=== PATIENT | male | born 1940 | race Caucasian/White ===

== ENCOUNTER → 2017-08-11 | Outpatient (CLI) | payer BC ==
[~2017-08-11] MED LIST: ASPI325 PO; Ultram50 MG PO
[2017-08-11 18:12] LABS: BASOPHILS ABSOLUTE AUTO 0.08 K/mm3 (0.00-0.23); BASOPHILS PERCENT AUTO 1 % (0-2); EOSINOPHILS ABSOLUTE AUTO 0.13 K/mm3 (0.00-0.68); EOSINOPHILS PERCENT AUTO 2 % (0-6); Hematocrit 44.4 % (37.0-53.0); Hemoglobin 14.9 g/dL (13.5-17.5); IMMATURE GRAN ABSOLUTE AUTO 0.03 K/mm3 (0.00-0.10); IMMATURE GRAN PERCENT AUTO 0 % (0-1); LYMPHOCYTES ABSOLUTE AUTO 1.17 K/mm3 (0.84-5.20); LYMPHOCYTES PERCENT AUTO 16 % (21-46); MONOCYTES ABSOLUTE AUTO 0.96 K/mm3 (0.16-1.47); MONOCYTES PERCENT AUTO 13 % (4-13); Mean Corpuscular HGB Conc 33.6 g/dL (31.5-36.5); Mean Corpuscular Volume 96 fL (80-100); Mean Platelet Volume 11.1 fL (9.1-12.4); NEUTROPHILS ABSOLUTE AUTO 5.09 K/mm3 (1.96-9.15); NEUTROPHILS PERCENT AUTO 68 % (41-73); Platelet Count 235 K/mm3 (150-400); RDW Coefficient Variation 13.6 % (11.7-14.2); RDW Standard Deviation 48.2 fL (35.1-46.3); Red Blood Cell Count 4.65 M/mm3 (4.30-5.90); White Blood Cell Count 7.46 K/mm3 (4.00-11.30)
[2017-08-11 19:25] LABS: Alanine Aminotransfer (ALT/SGP 28 U/L (12-78); Albumin, Blood 4.1 g/dL (3.4-5.0); Albumin/Globulin Ratio 1.1 (0.8-1.8); Alk Phos 72 U/L (50-136); Anion Gap 11 mmol/L (6-16); Aspartate Aminotrans (AST/SGOT 34 U/L (12-37); Bilirubin, Total 0.7 mg/dL (0.1-1.0); Blood Urea Nitrogen 19 mg/dL (8-24); Bun/Creatinine Ratio 21.4 (12.0-20.0); CO2, Blood 28 mmol/L (21-32); Calcium, Blood 9.8 mg/dL (8.5-10.1); Chloride, Blood 96 mmol/L (98-108); Creatinine, Blood 0.89 mg/dL (0.60-1.20); Free Thyroxine 0.93 ng/dL (0.70-1.60); Globulin, Blood 3.9 g/dL (2.2-4.0); Glomerular Filtration Rate >60 (60-); Glucose, Blood 104 mg/dL (70-99); PSA, %Free 35.1 %; PSA, Free 0.203 ng/mL; Potassium, Blood 3.6 mmol/L (3.5-5.5); Prostate Specific Antigen 0.578 ng/mL (0.000-4.000); Sodium, Blood 135 mmol/L (136-145)
== END ==
LOC: LAB SHORT 15:20
PROVIDERS: Nurse Practitioner Adult Health
DX: I10 Essential (primary) hypertension (principal); J44.9 Chronic obstructive pulmonary disease, unspecified; R53.83 Other fatigue; R63.4 Abnormal weight loss; Z86.39 Personal history of other endocrine, nutritional and metabolic disease; Z86.79 Personal history of other diseases of the circulatory system
CPT/HCPCS: 80053; 84153; 84154; 84439; 84443; 85025

== ENCOUNTER 2019-06-22 09:12 | Inpatient (IN) | payer BC ==
[~2019-06-22] VITALS: Ht 177.8 cm; Wt 72.5 kg
[2019-06-22 10:19] LABS: BASOPHILS ABSOLUTE AUTO 0.05 K/mm3 (0.00-0.23); BASOPHILS PERCENT AUTO 0 % (0-2); EOSINOPHILS PERCENT AUTO 0 % (0-6); Hematocrit 35.7 % (37.0-53.0); Hemoglobin 11.8 g/dL (13.5-17.5); IMMATURE GRAN ABSOLUTE AUTO 0.29 K/mm3 (0.00-0.10); IMMATURE GRAN PERCENT AUTO 2 % (0-1); LYMPHOCYTES ABSOLUTE AUTO 0.55 K/mm3 (0.84-5.20); LYMPHOCYTES PERCENT AUTO 3 % (21-46); MONOCYTES PERCENT AUTO 14 % (4-13); Mean Corpuscular HGB 33.8 pg (26.0-34.0); Mean Corpuscular HGB Conc 33.1 g/dL (31.5-36.5); Mean Corpuscular Volume 102 fL (80-100); Mean Platelet Volume 10.5 fL (9.1-12.4); NEUTROPHILS ABSOLUTE AUTO 15.66 K/mm3 (1.96-9.15); NEUTROPHILS PERCENT AUTO 82 % (41-73); Platelet Count 294 K/mm3 (150-400); RDW Coefficient Variation 14.3 % (11.7-14.2); RDW Standard Deviation 53.5 fL (35.1-46.3); Red Blood Cell Count 3.49 M/mm3 (4.30-5.90); White Blood Cell Count 19.15 K/mm3 (4.00-11.30)
[2019-06-22 10:26] LABS: Alanine Aminotransfer (ALT/SGP 21 U/L (12-78); Albumin, Blood 2.5 g/dL (3.4-5.0); Albumin/Globulin Ratio 0.5 (0.8-1.8); Alk Phos 69 U/L (50-136); Anion Gap 11 mmol/L (6-16); Aspartate Aminotrans (AST/SGOT 30 U/L (12-37); Bilirubin, Total 0.7 mg/dL (0.1-1.0); Blood Urea Nitrogen 25 mg/dL (8-24); Bun/Creatinine Ratio 39.4 (12.0-20.0); CO2, Blood 26 mmol/L (21-32); Calcium, Blood 8.3 mg/dL (8.5-10.1); Chloride, Blood 98 mmol/L (98-108); Creatinine, Blood 0.64 mg/dL (0.60-1.20); Globulin, Blood 4.9 g/dL (2.2-4.0); Glomerular Filtration Rate >60 (60-); Glucose, Blood 126 mg/dL (70-99); Potassium, Blood 3.6 mmol/L (3.5-5.5); Sodium, Blood 135 mmol/L (136-145); Total Protein, Blood 7.4 g/dL (6.4-8.2)
--- NOTE | 2019-06-22 15:24 | NUR ---
Echocardiogram completed.
[2019-06-22] MEDS ORDERED: ACET325 PO (15:27)
[2019-06-22 19:31] LABS: Source, Urine Clean Catch
[2019-06-22 19:41] LABS: Appearance, Urine Clear (Clear); Bilirubin, Urine Neg (Neg); Blood, Urine 2+ (Neg); Color, Urine Yellow (P-Yellow); Glucose Qualitative, Urine 1+ (Neg); Ketones, Urine Neg (Neg); Leukocyte Esterase, Urine 1+ (Neg); Nitrite, Urine Neg (Neg); Protein, Urine 3+ (Neg); Urobilinogen, Urine NORM (Normal)
[2019-06-22 19:47] LABS: Amorphous Light (0-Heavy); Bacteria Mod /hpf; Mucus Light (0-Heavy); Squamous Epithelial Cells Few /hpf (Few); White Blood Cells, Urine 0-2 /hpf (0-5)
--- NOTE | 2019-06-23 04:23 | NUR ---
SHIFT SUMMARY PT A/OX4 W/VSS. PAIN MANAGED WITH 10MG NORCO Q4. IVF INFUSING PER ORDERS, NPO AT 0000 TODAY. USES URINAL IND. CIWA SCORE UNDER 2. TELE IN PLACE; HR/RHYTHM IN WANDERING ATRIAL PACEMAKER AT 98 BPM W/ PVC- PER HEAD ORTHOPEDIC TEAM PHYSICIAN. PT PLEASANT AND COOPERATIVE. APPEARS TO HAVE SLEPT WELL T/O SHIFT. PLAN FOR POSSIBLE SURGERY TODAY. WILL CONT TO MONITOR AND GIVE REPORT TO ONCOMING RN.
[2019-06-23 04:28] LABS: BASOPHILS ABSOLUTE AUTO 0.05 K/mm3 (0.00-0.23); BASOPHILS PERCENT AUTO 0 % (0-2); EOSINOPHILS ABSOLUTE AUTO 0.01 K/mm3 (0.00-0.68); EOSINOPHILS PERCENT AUTO 0 % (0-6); Hematocrit 31.7 % (37.0-53.0); Hemoglobin 10.5 g/dL (13.5-17.5); IMMATURE GRAN ABSOLUTE AUTO 0.23 K/mm3 (0.00-0.10); IMMATURE GRAN PERCENT AUTO 2 % (0-1); LYMPHOCYTES ABSOLUTE AUTO 0.73 K/mm3 (0.84-5.20); LYMPHOCYTES PERCENT AUTO 5 % (21-46); MONOCYTES PERCENT AUTO 13 % (4-13); Mean Corpuscular HGB 33.9 pg (26.0-34.0); Mean Corpuscular HGB Conc 33.1 g/dL (31.5-36.5); Mean Corpuscular Volume 102 fL (80-100); Mean Platelet Volume 10.2 fL (9.1-12.4); NEUTROPHILS ABSOLUTE AUTO 12.31 K/mm3 (1.96-9.15); NEUTROPHILS PERCENT AUTO 80 % (41-73); Platelet Count 273 K/mm3 (150-400); RDW Coefficient Variation 14.3 % (11.7-14.2); RDW Standard Deviation 53.7 fL (35.1-46.3); White Blood Cell Count 15.33 K/mm3 (4.00-11.30)
[2019-06-23 04:44] LABS: Anion Gap 8 mmol/L (6-16); Blood Urea Nitrogen 29 mg/dL (8-24); Bun/Creatinine Ratio 39.9 (12.0-20.0); CO2, Blood 28 mmol/L (21-32); Calcium, Blood 8.3 mg/dL (8.5-10.1); Chloride, Blood 98 mmol/L (98-108); Creatinine, Blood 0.73 mg/dL (0.60-1.20); Glomerular Filtration Rate >60 (60-); Glucose, Blood 104 mg/dL (70-99); Potassium, Blood 3.2 mmol/L (3.5-5.5); Sodium, Blood 134 mmol/L (136-145)
--- NOTE | 2019-06-23 10:45 | NUR ---
assumed care of pt, recvd report from previous RN Mansi, pt lying in bed, rates pain at 8/10, will medicate per mar
--- NOTE | 2019-06-23 12:00 | NUR ---
Dr. Jaramillo in with pt, signed anesthesia consent
--- NOTE | 2019-06-23 16:10 | NUR ---
pt transferred to daysurgery for procedure
--- NOTE | 2019-06-23 17:48 | NUR ---
shift summary: vss, no acute changes, pt remained NPO prior to surgery, only sips with skip measure medications and analgesia per MD orders. Nursing staff provided pt with bed bath pre op. pt's HR <90 and SBP <140, surgeon/anesthesiologist notified. Pt taken to daysurgery approx 1600
--- NOTE | 2019-06-23 19:15 | NUR ---
WITH PT RECEIVED FROM PACU PER DAY RN AND STARTNG SHIFT REPORT,PT NOTED TO BE AGGITATED SWATTING AT STAFF.02 SATS DECLINED AND PT GRABBING STAFF HANDS WITH ATTEMPS TO PUT O2 ON.UNCOOPERATIVE WITH CARE.DAY RN CALLED REESE AND GAVE PT ATIVAN PER ORDER.REESE ARRIVED AT ROOM AFTER TO CHECK PT AND HE ASSISTED IN GETTING O2 ON.SEE FURTHER VS.
[2019-06-23 20:03] LABS: Hemoglobin 9.9 g/dL (13.5-17.5)
[2019-06-23 20:23] LABS: Alanine Aminotransfer (ALT/SGP 17 U/L (12-78); Albumin, Blood 1.9 g/dL (3.4-5.0); Albumin/Globulin Ratio 0.5 (0.8-1.8); Alk Phos 52 U/L (50-136); Anion Gap 9 mmol/L (6-16); Aspartate Aminotrans (AST/SGOT 24 U/L (12-37); Bilirubin, Total 0.3 mg/dL (0.1-1.0); Blood Urea Nitrogen 24 mg/dL (8-24); Bun/Creatinine Ratio 32.4 (12.0-20.0); CO2, Blood 27 mmol/L (21-32); Chloride, Blood 103 mmol/L (98-108); Creatinine, Blood 0.74 mg/dL (0.60-1.20); Globulin, Blood 4.1 g/dL (2.2-4.0); Glomerular Filtration Rate >60 (60-); Glucose, Blood 91 mg/dL (70-99); Magnesium, Blood 1.5 mg/dL (1.6-2.4); Potassium, Blood 3.3 mmol/L (3.5-5.5); Sodium, Blood 139 mmol/L (136-145)
--- NOTE | 2019-06-23 21:34 | NUR ---
CWA COMPLETED AT LEVEL 8.GAVE PT ATIVAN 2MG IV PER ORDER SET.PT REMAINS ON CONT PULSE OX 97% RR 20 O2 2 L VIA N/C.
--- NOTE | 2019-06-23 23:53 | NUR ---
PT CURRENTLY SLEEPING QUIETLY 2L SATS 97% RR 20.
--- NOTE | 2019-06-24 02:33 | NUR ---
PT MORE ALERT AND IS OCCASIONALLY ASKING FOR ASSISANCE TO REPOSITION APPROPRIATELY.BP NOW UP 172/110 ALTHOUGH NO INCREASE IN AGGITAION OR ANXIETY. CWA IS 8 AND HAS BEEN AT 8 INTERMITTENTLY TONIGHT. HR INCREASED @ 110 AFIB WITH PVCS NOTED PER TELE UNCHANGED. PT WAS NOT ABLE TO TAKE PO METOPROLOL DUE TO ASPIRATION RISK AND STATES HE DOES NOT FEEL HE COULD TAKE IT AT THIS TIME. I CALLED DR LEOS AND ADVISED OF ABOVE. SHE VERB SHE KAPIL BE PUTTING ORDERS IN.
--- NOTE | 2019-06-24 03:42 | NUR ---
BP IMPROVED. PT PULLED HIS TELE PATCHES OFF. WAS COOPERATIVE WITH REPLACEMENTS.CONTINUING ATIVAN PER PRDER SETS AND REESE LUZ AT BEGINNING OF SHIFT.
[2019-06-24 04:27] LABS: Hematocrit 32.9 % (37.0-53.0); Hemoglobin 10.6 g/dL (13.5-17.5); Mean Corpuscular HGB 33.8 pg (26.0-34.0); Mean Corpuscular HGB Conc 32.2 g/dL (31.5-36.5); Mean Platelet Volume 9.9 fL (9.1-12.4); Platelet Count 290 K/mm3 (150-400); RDW Coefficient Variation 14.2 % (11.7-14.2); RDW Standard Deviation 54.6 fL (35.1-46.3); Red Blood Cell Count 3.14 M/mm3 (4.30-5.90); White Blood Cell Count 14.99 K/mm3 (4.00-11.30)
[2019-06-24 04:31] LABS: Mean Corpuscular Volume 105 fL (80-100)
[2019-06-24 04:47] LABS: Anion Gap 13 mmol/L (6-16); Blood Urea Nitrogen 23 mg/dL (8-24); CO2, Blood 21 mmol/L (21-32); Calcium, Blood 8.1 mg/dL (8.5-10.1); Chloride, Blood 104 mmol/L (98-108); Glomerular Filtration Rate >60 (60-); Glucose, Blood 102 mg/dL (70-99); Potassium, Blood 4.1 mmol/L (3.5-5.5); Sodium, Blood 138 mmol/L (136-145)
--- NOTE | 2019-06-24 06:23 | NUR ---
SUMMARY PT CONTINUES REQUIRING ATIVAN TONIGHT.INTERMITTENTLY COOPERATIVE WITH CARE. SEE CWA,MEDS,AND VS
[2019-06-24 09:55] LABS: Base Excess Venous -0.8 mmol/L; Bicarbonate Venous 24.1 mmol/L (24.0-30.0); PCO2 Venous 32.1 mmHg (38-42); PO2 Venous 95.2 mmHg (38-42); pH Blood Venous 7.46 (7.34-7.37)
--- NOTE | 2019-06-24 16:02 | NUR ---
SUMMARY: PT IS POD1 L HIP NAILING. PT CONTINUES TO BE DROWSY, AWAKENS TO TOUCH AND VERBAL STIMULI. TALK IS GARBLED, ORIENTED X2. PT HAS NOT BE AGGITATED OR PULLING THINGS AT REST, ABLE TO SLEEP QUIETLY. DOES GET AGGITATED AND PAINFUL WHEN TURNED AND CHANGED. ETOH SYMPTOMS HAVE BEEN MINIMAL, SCORE OF 1-3. ATIVAN NOT GIVEN THIS SHIFT. VSS AT THIS TIME, NO EVENTS ON TELE. SUCTION SET UP IN ROOM, PT CONTINUES TO HAVE WET, UNPRODUCTIVE COUGH. SWALLOW EVAL ORDERED. FOLLOWING ASPIRATION PRECAUTIONS. PT TOO DROWSY TO WORK WITH PT/OT. NO ACUTE CONCERNS CURRENTLY. WILL CTM AND REPORT TO JACOBY RN.
--- NOTE | 2019-06-25 06:41 | NUR ---
SUMMARY NO DISTRESS TONIGHT.CONFUSED WITH INTERMITTENT PERIODS OF LUCIDITY TO HAVING HAD SURGERY.CONT WITH POOR COUGH EFFORT DUE TO POOR UNDERSTANDING. NEEDING FURTHER WORK WITH PT/OT.
[2019-06-25 08:56] LABS: Hematocrit 32.2 % (37.0-53.0); Hemoglobin 10.2 g/dL (13.5-17.5); Mean Corpuscular HGB 33.6 pg (26.0-34.0); Mean Corpuscular HGB Conc 31.7 g/dL (31.5-36.5); Mean Corpuscular Volume 106 fL (80-100); Mean Platelet Volume 9.7 fL (9.1-12.4); Platelet Count 306 K/mm3 (150-400); RDW Coefficient Variation 14.4 % (11.7-14.2); RDW Standard Deviation 55.8 fL (35.1-46.3); Red Blood Cell Count 3.04 M/mm3 (4.30-5.90)
[2019-06-25 09:12] LABS: Anion Gap 7 mmol/L (6-16); Blood Urea Nitrogen 19 mg/dL (8-24); Bun/Creatinine Ratio 29.1 (12.0-20.0); CO2, Blood 30 mmol/L (21-32); Calcium, Blood 8.8 mg/dL (8.5-10.1); Chloride, Blood 103 mmol/L (98-108); Creatinine, Blood 0.65 mg/dL (0.60-1.20); Glomerular Filtration Rate >60 (60-); Glucose, Blood 147 mg/dL (70-99); Potassium, Blood 3.2 mmol/L (3.5-5.5); Sodium, Blood 140 mmol/L (136-145)
--- NOTE | 2019-06-25 13:58 | NUR ---
06/25/19 1358 Sita Morales VERIFICATIONS: EDIT CHART.
--- NOTE | 2019-06-25 18:09 | NUR ---
SUMMARY: PT IS POD2 L HIP FX REPAIR. NO ACUTE CHANGE TODAY. VSS, A/O, SOMEWHAT DROSWY AT TIMES BUT EASILY AWAKEND AND ANSWERING QUESTIONS. TELE STABLE. PT ABLE TO WORK WITH PT/OT. NO SIGNS OF WITHDRAWAL. WILL CTM AND REPORT TO NOC RN
--- NOTE | 2019-06-26 03:46 | NUR ---
SHIFT SUMMARY PT IS A/O X4 ALTHOUGH HE HAS SEEMED SOMEWHAT SLOW TO RESPOND AND DIFFICULT TO UNDERSTAND. PT NEEDS 2-3 X ASSIST TO TRANSFER FROM BED TO CHAIR. PT IS INCONTINENT AND HAS BEEN CHANGED PRN. PT REPOSITIONED MULT TIMES THROUGHOUT THE SHIFT. PT IS TOLERATING PUREE DIET. LUNGS CONTINUE TO SOUND COARSE AND PT HAS HAD NONPRODUCTIVE COUGH. BIOX IN PLACE THROUGHOUT THE NIGHT. NO ACUTE CHANGES. PT REPORTS PAIN WITH MOVEMENT BUT OTHERWISE HAS BEEN RESTING QUIETLY. ASSISTED WITH ADL'S PRN.
[2019-06-26 04:40] LABS: Anion Gap 8 mmol/L (6-16); Blood Urea Nitrogen 18 mg/dL (8-24); Bun/Creatinine Ratio 25.8 (12.0-20.0); CO2, Blood 29 mmol/L (21-32); Calcium, Blood 8.9 mg/dL (8.5-10.1); Chloride, Blood 105 mmol/L (98-108); Glomerular Filtration Rate >60 (60-); Glucose, Blood 120 mg/dL (70-99); Potassium, Blood 3.8 mmol/L (3.5-5.5); Sodium, Blood 142 mmol/L (136-145)
[2019-06-26 11:53] LABS: Source, Urine Catheter
[2019-06-26 11:57] LABS: Bilirubin, Urine Neg (Neg); Blood, Urine 5+ (Neg); Glucose Qualitative, Urine Neg (Neg); Ketones, Urine Neg (Neg); Leukocyte Esterase, Urine 3+ (Neg); Nitrite, Urine Neg (Neg); Protein, Urine 2+ (Neg); Specific Gravity, Urine 1.005 (1.003-1.022); Urobilinogen, Urine NORM (Normal)
[2019-06-26 12:24] LABS: Appearance, Urine Hazy (Clear); Color, Urine Amber (P-Yellow)
[2019-06-26 12:26] LABS: Red Blood Cells, Urine TNTC /hpf (0-2)
[2019-06-26 12:27] LABS: Squamous Epithelial Cells Rare /hpf (Few); White Blood Cells, Urine 25-50 /hpf (0-5)
[2019-06-26 12:28] LABS: Bacteria Few /hpf
--- NOTE | 2019-06-26 15:16 | NUR ---
SHIFT SUMMARY PT A&OX4, VSS, TELE AFIB 75, BIOX ON. POD 3 L HIP NAILING, AQUACEL CDI. PAIN MANAGED WITH 5 MG OXY AND TYLENOL. SUZANNE PO PUREE DIET, THIN LIQUIDS, NO STRAWS; DENIES N&V. PUENTE PLACED FOR STRICT I&O'S; STAT LOCK ON, OFF FLOOR. AMB W/ 2 PP STAND PIVOT TO CHAIR/BED. WILL REPORT TO NEXT RN.
--- NOTE | 2019-06-27 06:03 | NUR ---
SHIFT SUMMARY: NINA AROUSES EASILY, RESPONDS APPRORPIATELY WITH GARBLED SPEECH. HE HAS RESTED DURING MOST OF THE NIGHT, BECOMING AGITATED WHEN AWOKEN. HE IS TOLERATING SMALL SLIPS OF LIQUIDS, BUT DID NOT EAT ANY OF HIS DINNER AND REFUSES A SNACK. PUENTE DRAINING CLEAR, ORANGE URINE, SEDIMENT IN TUBING NOTED. HE REQUESTED THE BEDPAN FOR HIS BOWEL MOVEMENT, CONTINENT OF BOWEL. MEPILEX TO COCCYX AND BACK INTACT. DRESSINGS TO LEFT HIP AND RIGHT HAND INTACT. ARIE HOSE AND SCDs IN PLACE. PT IS A HEAVY 2 PERSON TRANSFER WITH A GAIT BELT AND FWW. HE IS MALNOURISHED IN APPEARANCE. HE WAS ENCOURAGED TO KEEP THE TOWEL BETWEEN HIS KNEES TO MAINTAIN HIS LEFT HIP IN NEUTRAL POSITION. HE WAS ENCOURAGED TO USE THE FLUTTER VALVE TO HELP CLEAR SECRETIONS, HAS REFUSED IT THIS SHIFT. FLUTTER VALVE AND IS AT BEDSIDE. HE IS ABLE TO MAKE HIS NEEDS KNOWN. HE IS LYING IN BED WITH THE CALL LIGHT IN REACH. WILL REPORT TO DAY SHIFT RN.
[2019-06-27 06:18] LABS: Anion Gap 8 mmol/L (6-16); Blood Urea Nitrogen 19 mg/dL (8-24); Bun/Creatinine Ratio 29.1 (12.0-20.0); CO2, Blood 30 mmol/L (21-32); Calcium, Blood 9.2 mg/dL (8.5-10.1); Chloride, Blood 103 mmol/L (98-108); Creatinine, Blood 0.65 mg/dL (0.60-1.20); Glomerular Filtration Rate >60 (60-); Glucose, Blood 108 mg/dL (70-99); Sodium, Blood 141 mmol/L (136-145)
--- NOTE | 2019-06-27 16:43 | NUR ---
STEVEN on chart needs signature. If doctor kyler back will have her sign. Pt very fatigued and weak and frail looks to possibly still be widrawing. speech therapy in to see pt. took great coaxing to get pt to participate. Once started he did ok. pt may need placement after rehab this injury may be more than he can completly recover from. Pt reading a book acknoledged the author and he smiled. will try to spen more theraputic time with pt and get chaplian visits. pt will need advsnce care plan and to confirm next of kin for decion making in the future if he declines.
--- NOTE | 2019-06-27 18:25 | NUR ---
SHIFT SUMMARY PT A&OX3, SLOW TO RESPOND, VSS, TELE AFIB @91 BPM. POD4 NAILING, AQUACEL CDI. PAIN MANAGED WITH TYLENOL, PT REFUSES NARCOTICS. AMBULATES WITH FWW & GB WITH 1 PP MOD ASSIST TO BSC/CHAIR/BED. PUENTE PATENT & DRAINING YELLOW URINE,STAT LOCK ON, OFF FLOOR; BM TODAY. SUZANNE PO, DENIES N&V. WILL REPORT TO ONCOMING NOC RN.
[2019-06-28 04:43] LABS: Anion Gap 7 mmol/L (6-16); Blood Urea Nitrogen 23 mg/dL (8-24); Bun/Creatinine Ratio 25.2 (12.0-20.0); CO2, Blood 30 mmol/L (21-32); Calcium, Blood 8.7 mg/dL (8.5-10.1); Chloride, Blood 102 mmol/L (98-108); Creatinine, Blood 0.91 mg/dL (0.60-1.20); Glomerular Filtration Rate >60 (60-); Glucose, Blood 108 mg/dL (70-99); Magnesium, Blood 1.7 mg/dL (1.6-2.4); Potassium, Blood 3.8 mmol/L (3.5-5.5); Sodium, Blood 139 mmol/L (136-145)
--- NOTE | 2019-06-28 05:17 | NUR ---
SHIFT SUMMARY: NINA IS A&0 X 3. HE HAS BEEN PLEASANT AND COOPERATIVE THIS SHIFT. HE DENIES PAIN. HE IS TOLERATING PO INTAKE WELL. PUENTE IN PLACE DRAINING CLEAR, YELLOW URINE. STRICT I&Os. HE DID TALK TO HIS FRIEND UYEN THIS SHIFT. SHE EXPRESSED HER DESIRE THAT HE BE DISCHARGED TO A SNF FOR STRENGTHENING D/T HIS LIVING CONDITIONS AND HER ABILITIES TO CARE FOR HIM. PT HAS RECOMMENDED D/C TO A SNF. HE IS ABLE TO MAKE HIS NEEDS KNOWN. HE IS LYING IN BED WITH HIS CALL LIGHT IN REACH. WILL REPORT TO DAY SHIFT RN.
--- NOTE | 2019-06-28 10:10 | NUR ---
ASSUMED CARE OF PT, OOB TO CHAIR W/ OT, TOLERATED WELL, DENIES ANY NEED FOR PAIN MEDS AT THIS TIME, CONT. TO MONITOR FOR ANY CHANGES.
--- NOTE | 2019-06-29 05:03 | NUR ---
SHIFT SUMMARY POD 6 L HIP REPAIR PT AA0X4 DURING SHIFT BUT WILL ANSWER QUESTIONS INCORRECTLY AT TIMES AND APPEARS FORGETFUL. INC OF BOWEL AND BLADDER DURING SHIFT, HAS NOT USED CALL LIGHT. DENIES PAIN, PLAN IS FOR DC TO SNF, AWAITING PLACEMENT.
--- NOTE | 2019-06-29 15:42 | NUR ---
Pt resting in bed upon arrival. Pt is A&OX4 and denies pain at this time. Pt completed a POLST with Palliative Care RN and this RN confirmed wishes are the same, DNR and Limited Treatment. Pt signs POLST and Dr Manning contacted for MD signature. Dr Manning will sign POLST during rounds tomorrow morning. Pt reports no other concerns at this time. POLST placed on Pt's white board. Palliative Care will remain available.
--- NOTE | 2019-06-29 17:35 | NUR ---
OOB TO CHAIR AND WORKED W/ PT/OT TODAY, C/O PAIN ON "FEET" THIS AM, CURRENTLY DENIES ANY PAIN ON FEET, SLEPT MOST OF THE AFTERNOON, NO ACUTE CHANGES THIS SHIFT.
--- NOTE | 2019-06-30 05:30 | NUR ---
SHIFT SUMMARY LYING IN SEMI FOWLERS WITH EYES CLOSED. AAO X3, GLOVER, FOLLOWS ALL COMMANDS. HAS BEEN PLEASANT AND COOPERATIVE WITH CARE THIS SHIFT. REPOSITIONS SELF FOR COMFORT PRN. USES URINAL WITHOUT ASSISTANCE. DENIES FURTHER NEEDS OR WANTS AT THIS TIME. SAFETY MEASURES IN PLACE. WILL CONTINUE TO MONITOR AND GIVE HAND OFF TO ONCOMING SHIFT USING SBAR DURING BEDSIDE REPORT.
--- NOTE | 2019-07-01 04:57 | NUR ---
SHIFT SUMMARY PT IS A/O X4. HE HAS BEEN SLEEPING MOST OF THE NIGHT. PT HAS BEEN TOLERATING PO INTAKE AND IS VOIDING USING URINAL. PT DENIES PAIN AT REST. NO ACUTE CHANGES OVERNIGHT. VSS. PLAN IS TO D/C WITH HH OR SNF. ASSISTED WITH ADL'S PRN.
--- NOTE | 2019-07-01 16:12 | NUR ---
SHIFT SUMMARY PT A&OX4, VSS, POD8 L GAMMA NAIL, AQUACEL CDI - NEW DRESSING APPLIED TODAY, TEDS/SCDS. SHOWERED TODAY. DNR L WRIST. PAIN MANAGED WITH TYLENOL. AMBULATES W/FWW&GB, SBA TO BRP AND CHAIR/BED. SUZANNE PO, DENIES N&V; DYSPHAGIA PRECAUTIONS, MEDS WITH APPLESAUCE. PLAN FOR DC TO SNF TOMORROW. WILL REPORT TO ONCOMING NOC RN.
--- NOTE | 2019-07-02 04:41 | NUR ---
SHIFT SUMMARY PT IS A/O X4. PT REPOSITIONS SELF IN BED AND HAS BEEN ASSISTED PRN. PT IS OCCASIONALLY INCONTINENT AND HAS HAD ATTENS IN PLACE AND CHANGED PRN. PT USES URINAL AT TIMES; URINAL AT BEDTIME. PT TOLERATING PO INTAKE AND VOIDING. BOTH MEPILEX'S CHANGED THIS SHIFT. NO ACUTE CHANGES. VSS.
--- NOTE | 2019-07-02 07:40 | NUR ---
PT AWAKE READING A BOOK STATED HE FEELS BETTER DRESSING TO HIP HAS SCANT AMT OF ROSIO
--- NOTE | 2019-07-02 11:59 | NUR ---
pt eating lunch req his socks be removed
--- NOTE | 2019-07-02 13:19 | NUR ---
pt req tylenol for pain 08/26
--- NOTE | 2019-07-02 16:44 | NUR ---
pt req pain meds 1 tab ultram given also elev his l leg on pillow pt is feeling down r/t not being able to transfer to snf today plan is to go on friday to [facility]
--- NOTE | 2019-07-03 06:02 | NUR ---
SHIFT SUMMARY POD 10 LEFT HIP GAMMA NAILING AA0X4, PT DENIES PAIN DURING SHIFT. DENIES NAUSEA. PT MOVES LEG WELL DURING ASSESSMENT. PT VOIDING IN URINAL DURING SHIFT. PT HAS BEEN SLEEPING T/O SHIFT DENIES NEEDS DURING SHIFT. PLAN IS FOR DISCHARGE TO SNF ON FRIDAY. PT STATED HE IS LOOKING FORWARD TO THIS.
--- NOTE | 2019-07-03 18:17 | NUR ---
SHIFT SUMMARY PT HAS BEEN ABLE TO WORK WITH THERAPY THIS SHIFT. HE WAS ABLE TO WALK A FEW STEP WITH THERAPY. PT REPORTS HE CAN REPOSITION HIMSELF IN BED. PT IS CONTINENT BUT SPILLS URINE WHEN ATTEMPTING TO USE THE URINAL. ATTENDS IN PLACE. L PROXIMAL HIP DRESSING CHANGED THIS EVENING. PT IS TOLERATING PO WELL. VSS. WILL MONITOR UNTIL REPORT TO ONCOMING RN.
--- NOTE | 2019-07-04 04:58 | NUR ---
SHIFT SUMMARY POD 10 L HIP REPAIR AA0X4, PT DENIES PAIN DURING SHIFT. DRESSINGS CDI. WIGGLES FINGERS AND TOES SENSATION INTACT, HEELS FLOATED FOR COMFORT. PT RESTING AND REPOSITIONING IN BED DURING SHIFT. EYES CLOSED NO GRIMACE. DENIES NEEDS DURING SHIFT. PLAN IS FOR DISCHARGE TO SNF ON FRIDAY.
--- NOTE | 2019-07-04 19:42 | NUR ---
SHIFT SUMMARY PAIN HAS BEEN MANAGED WITH TYLENOL. PT HAD A BOWEL MOVEMENT TODAY. HE IS A 1-2 ASSIST WHEN OOB. VSS. REPORT GIVEN TO JACOBY DIAZ.
--- NOTE | 2019-07-05 05:39 | NUR ---
SHIFT SUMMARY AA0X4, DENIED PAIN DURING SHIFT, REPOSITIONING SELF IN BED FREQUENTLY. TOLERATING PO WELL. PLAN IS FOR DISCHARGE TO [facility] TODAY. PT STATES THAT HE IS EXCITED TO GO.
--- NOTE | 2019-07-05 16:43 | NUR ---
DISCHARGE SUMMARY PT A&OX4, VSS, LEFT FLOOR VIA WC WITH TRANSPORT TO GO TO [facility], WITH ALL PERSONAL POSSESSIONS IN BOX: BOOKS, CANDY, CLOTHING, CIGS THAT WERE DELIVERED TO HOSPITAL BY UYEN TODAY, AND BRI ONEIL. UYEN TOOK HOME PT'S WALLET WITH MONEY IN IT. REPORT GIVEN TO RN AT [facility]. NO IV.
== END 2019-07-05 16:38 | disposition home or self-care (01) | DRG 480 ==
LOC: ER 09:12 → SURS 10:53
PROVIDERS: Emergency Medicine; Internal Medicine; Nurse Practitioner Acute Care; Orthopaedic Surgery; ADMIT Internal Medicine
PROC: 0QS736Z Reposition Left Upper Femur with Intramedullary Internal Fixation Device, Percutaneous Approach (ICD-10-PCS; principal; 2019-06-23 16:30)
DX: S72.042A Displaced fracture of base of neck of left femur, initial encounter for closed fracture (principal); J96.01 Acute respiratory failure with hypoxia; I50.31 Acute diastolic (congestive) heart failure; J18.9 Pneumonia, unspecified organism; I48.20 Chronic atrial fibrillation, unspecified; R65.10 Systemic inflammatory response syndrome (SIRS) of non-infectious origin without acute organ dysfunction; I47.2 Ventricular tachycardia; W19.XXXA Unspecified fall, initial encounter; K21.9 Gastro-esophageal reflux disease without esophagitis; F17.210 Nicotine dependence, cigarettes, uncomplicated; I73.9 Peripheral vascular disease, unspecified; F10.20 Alcohol dependence, uncomplicated; Z66 Do not resuscitate; I11.0 Hypertensive heart disease with heart failure
CPT/HCPCS: 36415; 71045; 73501; 73502; 80048; 80053; 81001; 82607; 82746; 82803; 83735; 83880; 85014; 85018; 85025; 85027; 87086; 92526; 92610; 93005; 93010; 93306; 94640; 94667; 94760; 94762; 96374-59; 97110; 97116; 97162; 97166; 97530; 97535; 99285-25; A9270; A9270-GY; C1713; J0360; J0690; J0696; J1170; J1644; J1940; J2060; J2250; J2370; J3010; J3475; J3480; J7030; J7120

== ENCOUNTER → 2019-07-20 | Outpatient (CLI) | payer BC ==
[~2019-07-20] MED LIST changes: +ACET325 PO; +CEFD300 PO; +LOSARTAN POTASS25 M2 PO; +METO50ER PO; +XARELTO20 M1 PO
[2019-07-20 17:23] LABS: BASOPHILS ABSOLUTE AUTO 0.08 K/mm3 (0.00-0.23); BASOPHILS PERCENT AUTO 1 % (0-2); EOSINOPHILS ABSOLUTE AUTO 0.04 K/mm3 (0.00-0.68); EOSINOPHILS PERCENT AUTO 0 % (0-6); Hematocrit 32.1 % (37.0-53.0); Hemoglobin 9.8 g/dL (13.5-17.5); IMMATURE GRAN ABSOLUTE AUTO 0.36 K/mm3 (0.00-0.10); IMMATURE GRAN PERCENT AUTO 2 % (0-1); LYMPHOCYTES ABSOLUTE AUTO 1.18 K/mm3 (0.84-5.20); LYMPHOCYTES PERCENT AUTO 7 % (21-46); MONOCYTES PERCENT AUTO 5 % (4-13); Mean Corpuscular HGB 32.6 pg (26.0-34.0); Mean Corpuscular HGB Conc 30.5 g/dL (31.5-36.5); Mean Corpuscular Volume 107 fL (80-100); NEUTROPHILS ABSOLUTE AUTO 13.99 K/mm3 (1.96-9.15); NEUTROPHILS PERCENT AUTO 85 % (41-73); NRBC ABSOLUTE 0.04 K/mm3 (0.00-0.02); NRBC Auto 0.2 /100 WBC (0.0-0.2); Platelet Count 343 K/mm3 (150-400); RDW Coefficient Variation 15.9 % (11.7-14.2); RDW Standard Deviation 60.7 fL (35.1-46.3); Red Blood Cell Count 3.01 M/mm3 (4.30-5.90); White Blood Cell Count 16.55 K/mm3 (4.00-11.30)
[2019-07-20 18:23] LABS: Albumin, Blood 3.3 g/dL (3.4-5.0); Albumin/Globulin Ratio 0.7 (0.8-1.8); Alk Phos 137 U/L (50-136); Anion Gap 16 mmol/L (6-16); Bilirubin, Total 0.7 mg/dL (0.1-1.0); Blood Urea Nitrogen 59 mg/dL (8-24); Bun/Creatinine Ratio 28.4 (12.0-20.0); CO2, Blood 15 mmol/L (21-32); Chloride, Blood 106 mmol/L (98-108); Cholesterol 189 mg/dL (50-200); Creatinine, Blood 2.08 mg/dL (0.60-1.20); Globulin, Blood 4.6 g/dL (2.2-4.0); Glomerular Filtration Rate 33 (60-); Glucose, Blood 126 mg/dL (70-99); HDL Cholesterol 64 mg/dL (>39); LDL/HDL RATIO 1.5; Low Density Lipoprotein Chol 94 mg/dL (0-110); Sodium, Blood 137 mmol/L (136-145); Total Protein, Blood 7.9 g/dL (6.4-8.2); Triglycerides 155 mg/dL (30-160); Very Low Density Lipoprot Chol 31 mg/dL (6-32)
[2019-07-20 18:24] LABS: Alanine Aminotransfer (ALT/SGP 1802 U/L (12-78); Aspartate Aminotrans (AST/SGOT 1794 U/L (12-37)
== END | disposition home or self-care (01) ==
LOC: LAB SHORT 16:09 → LAB 16:09
PROVIDERS: Nurse Practitioner Family
DX: Z11.59 Encounter for screening for other viral diseases (principal); E78.5 Hyperlipidemia, unspecified; I10 Essential (primary) hypertension
CPT/HCPCS: 80053; 80061; 85025; 86803

== ENCOUNTER 2019-07-21 14:16 | Emergency (ER) | payer BC ==
[~2019-07-21] VITALS: Ht 175.3 cm; Wt 72.6 kg
[~2019-07-21 14:16] MED LIST changes: -CEFD300 PO; -LOSARTAN POTASS25 M2 PO; -METO50ER PO; -XARELTO20 M1 PO
[2019-07-21 15:42] LABS: Source, Urine Peds U Bag
[2019-07-21 16:09] LABS: BASOPHILS ABSOLUTE AUTO 0.07 K/mm3 (0.00-0.23); BASOPHILS PERCENT AUTO 1 % (0-2); EOSINOPHILS ABSOLUTE AUTO 0.07 K/mm3 (0.00-0.68); EOSINOPHILS PERCENT AUTO 1 % (0-6); Hematocrit 31.4 % (37.0-53.0); Hemoglobin 9.9 g/dL (13.5-17.5); IMMATURE GRAN ABSOLUTE AUTO 0.26 K/mm3 (0.00-0.10); IMMATURE GRAN PERCENT AUTO 2 % (0-1); LYMPHOCYTES ABSOLUTE AUTO 0.92 K/mm3 (0.84-5.20); LYMPHOCYTES PERCENT AUTO 7 % (21-46); MONOCYTES ABSOLUTE AUTO 0.96 K/mm3 (0.16-1.47); MONOCYTES PERCENT AUTO 7 % (4-13); Mean Corpuscular HGB 32.8 pg (26.0-34.0); Mean Corpuscular HGB Conc 31.5 g/dL (31.5-36.5); Mean Platelet Volume 10.4 fL (9.1-12.4); NEUTROPHILS ABSOLUTE AUTO 11.39 K/mm3 (1.96-9.15); NEUTROPHILS PERCENT AUTO 83 % (41-73); NRBC ABSOLUTE 0.03 K/mm3 (0.00-0.02); NRBC Auto 0.2 /100 WBC (0.0-0.2); Platelet Count 352 K/mm3 (150-400); RDW Coefficient Variation 16.1 % (11.7-14.2); RDW Standard Deviation 58.5 fL (35.1-46.3); Red Blood Cell Count 3.02 M/mm3 (4.30-5.90); White Blood Cell Count 13.67 K/mm3 (4.00-11.30)
[2019-07-21 16:10] LABS: Mean Corpuscular Volume 104 fL (80-100)
[2019-07-21 16:11] LABS: Bilirubin, Urine Neg (Neg); Blood, Urine 5+ (Neg); Glucose Qualitative, Urine Neg (Neg); Ketones, Urine 1+ (Neg); Leukocyte Esterase, Urine 3+ (Neg); Nitrite, Urine Pos (Neg); Protein, Urine 2+ (Neg); Urobilinogen, Urine NORM (Normal)
[2019-07-21 16:22] LABS: Appearance, Urine Cloudy (Clear); Color, Urine Yellow (P-Yellow)
[2019-07-21 16:23] LABS: Albumin, Blood 3.2 g/dL (3.4-5.0); Albumin/Globulin Ratio 0.7 (0.8-1.8); Bilirubin, Total 0.7 mg/dL (0.1-1.0); Calcium, Blood 9.4 mg/dL (8.5-10.1); Globulin, Blood 4.5 g/dL (2.2-4.0); Potassium, Blood 4.8 mmol/L (3.5-5.5); Total Protein, Blood 7.7 g/dL (6.4-8.2)
[2019-07-21 16:25] LABS: Squamous Epithelial Cells Not Seen /hpf (Few); White Blood Cells, Urine TNTC /hpf (0-5)
[2019-07-21 16:26] LABS: Bacteria Many /hpf
[2019-07-21 16:30] LABS: Bun/Creatinine Ratio 30.8 (12.0-20.0); Creatinine, Blood 1.69 mg/dL (0.60-1.20)
[2019-07-21] MEDS ORDERED: LOSARTAN POTASS25 M2 PO (16:36)
[2019-07-21] MEDS ORDERED: METO50ER PO (16:37)
[2019-07-21] MEDS ORDERED: XARELTO20 M1 PO (16:37)
[2019-07-21] MEDS ORDERED: CEFD300 PO (17:23)
== END 2019-07-21 17:39 | disposition home or self-care (01) ==
LOC: ER 14:16
PROVIDERS: Emergency Medicine; Physician Assistant
DX: N39.0 Urinary tract infection, site not specified (principal); E86.0 Dehydration; N28.9 Disorder of kidney and ureter, unspecified; R74.0 Nonspecific elevation of levels of transaminase and lactic acid dehydrogenase [LDH]; F17.210 Nicotine dependence, cigarettes, uncomplicated; Z91.018 Allergy to other foods; Z91.030 Bee allergy status
CPT/HCPCS: 36415; 76770; 80053; 81001; 83880; 84484; 85025; 87077; 87086; 87186; 93005; 93010; 96365; 99284-25; G0480; J0696; J7030

== ENCOUNTER → 2019-07-27 | Outpatient (CLI) | payer BC ==
[~2019-07-27] MED LIST changes: +CEFD300 PO; +LOSARTAN POTASS25 M2 PO; +METO50ER PO; +XARELTO20 M1 PO
[2019-07-27 17:40] LABS: Alanine Aminotransfer (ALT/SGP 180 U/L (12-78); Albumin, Blood 2.9 g/dL (3.4-5.0); Albumin/Globulin Ratio 0.7 (0.8-1.8); Alk Phos 115 U/L (50-136); Anion Gap 4 mmol/L (6-16); Aspartate Aminotrans (AST/SGOT 34 U/L (12-37); Bilirubin, Total 0.4 mg/dL (0.1-1.0); Blood Urea Nitrogen 12 mg/dL (8-24); Bun/Creatinine Ratio 11.5 (12.0-20.0); CO2, Blood 24 mmol/L (21-32); Calcium, Blood 8.9 mg/dL (8.5-10.1); Chloride, Blood 112 mmol/L (98-108); Creatinine, Blood 1.04 mg/dL (0.60-1.20); Glomerular Filtration Rate >60 (60-); Glucose, Blood 107 mg/dL (70-99); Potassium, Blood 4.6 mmol/L (3.5-5.5); Sodium, Blood 140 mmol/L (136-145); Total Protein, Blood 6.9 g/dL (6.4-8.2)
== END | disposition home or self-care (01) ==
LOC: LAB 15:44 → LAB SHORT 15:44
PROVIDERS: Nurse Practitioner Family
DX: N17.9 Acute kidney failure, unspecified (principal)
CPT/HCPCS: 80053

== ENCOUNTER → 2019-08-24 | Outpatient (CLI) | payer BC ==
[~2019-08-24] MED LIST changes: +ATROPINE SULFATE2 M1 BOTHEYES; +Cymbalta30 MG PO; +LORA.5 PO; +MORP20L PO; +TRANSDERM-SCOP1 EACH TD
[2019-08-24 17:37] LABS: Appearance, Urine Cloudy (Clear); Bilirubin, Urine Neg (Neg); Blood, Urine 5+ (Neg); Color, Urine Yellow (P-Yellow); Glucose Qualitative, Urine Neg (Neg); Ketones, Urine 2+ (Neg); Leukocyte Esterase, Urine 3+ (Neg); Nitrite, Urine Neg (Neg); Protein, Urine 2+ (Neg); Urobilinogen, Urine NORM (Normal)
[2019-08-24 18:15] LABS: Bacteria Many /hpf; Squamous Epithelial Cells Not Seen /hpf (Few); White Blood Cells, Urine TNTC /hpf (0-5)
== END | disposition home or self-care (01) ==
LOC: LAB 15:53 → LAB SHORT 15:53
PROVIDERS: Nurse Practitioner Family
DX: R32 Unspecified urinary incontinence (principal)
CPT/HCPCS: 81001; 87077; 87086; 87186

== ENCOUNTER 2019-08-31 10:47 | Inpatient (IN) | payer BC ==
[~2019-08-31] VITALS: Ht 177.8 cm; Wt 77.6 kg
[~2019-08-31 10:47] MED LIST changes: -ATROPINE SULFATE2 M1 BOTHEYES; -Cymbalta30 MG PO; -LORA.5 PO; -MORP20L PO; -TRANSDERM-SCOP1 EACH TD
[2019-08-31 11:42] LABS: PCO2 Arterial 19 mmHg (35-45); PO2 Arterial 174 mmHg (80-100); pH Blood Arterial 7.11 (7.35-7.45)
[2019-08-31 11:53] LABS: Hematocrit 26.8 % (37.0-53.0); Hemoglobin 7.4 g/dL (13.5-17.5); Mean Corpuscular HGB 30.2 pg (26.0-34.0); Mean Corpuscular HGB Conc 27.6 g/dL (31.5-36.5); Mean Corpuscular Volume 109 fL (80-100); Mean Platelet Volume 9.8 fL (9.1-12.4); NRBC ABSOLUTE 0.29 K/mm3 (0.00-0.02); NRBC Auto 1.1 /100 WBC (0.0-0.2); Platelet Count 609 K/mm3 (150-400); RDW Coefficient Variation 14.9 % (11.7-14.2); RDW Standard Deviation 59.9 fL (35.1-46.3); Red Blood Cell Count 2.45 M/mm3 (4.30-5.90); White Blood Cell Count 27.15 K/mm3 (4.00-11.30)
[2019-08-31 12:15] LABS: BAND PERCENT MAN 3 % (0-8); BASOPHILS ABSOLUTE MAN 0.27 K/mm3 (0.00-0.23); BASOPHILS PERCENT MAN 1 % (0-2); EOSINOPHILS ABSOLUTE MAN 0.54 K/mm3 (0.00-0.68); EOSINOPHILS PERCENT MAN 2 % (0-6); LYMPHOCYTES ABSOLUTE MAN 3.52 K/mm3 (0.84-5.20); LYMPHOCYTES PERCENT MAN 13 % (21-46); METAMYELOCYTE ABSOLUTE MAN 0.54 K/mm3 (0.00-0.00); METAMYELOCYTE PERCENT MAN 2 % (0-0); MONOCYTES ABSOLUTE MAN 3.25 K/mm3 (0.16-1.47); MONOCYTES PERCENT MAN 12 % (4-13); MYELOCYTE ABSOLUTE MAN 1.08 K/mm3 (0.00-0.00); MYELOCYTE PERCENT MAN 4 % (0-0); NEUTROPHILS ABSOLUTE MAN 17.91 K/mm3 (1.96-9.15); SEG NEUTROPHILS PERCENT MAN 63 % (41-73); TOTAL CELLS COUNTED 100
[2019-08-31 12:17] LABS: Magnesium, Blood 2.3 mg/dL (1.6-2.4); Troponin I <0.015 ng/mL (0.000-0.040)
[2019-08-31 12:18] LABS: D-Dimer, Quantitative 3.37 mg/L FEU (0.00-0.52); International Normalized Ratio 1.04; Prothrombin Time Results 11.1 Sec (9.7-11.5)
[2019-08-31 12:19] LABS: Alanine Aminotransfer (ALT/SGP 13 U/L (12-78); Albumin, Blood 2.8 g/dL (3.4-5.0); Albumin/Globulin Ratio 0.6 (0.8-1.8); Alk Phos 88 U/L (50-136); Anion Gap 25 mmol/L (6-16); Aspartate Aminotrans (AST/SGOT 24 U/L (12-37); Bilirubin, Total 0.5 mg/dL (0.1-1.0); Blood Urea Nitrogen 14 mg/dL (8-24); Bun/Creatinine Ratio 14.5 (12.0-20.0); CO2, Blood 7 mmol/L (21-32); Calcium, Blood 9.6 mg/dL (8.5-10.1); Chloride, Blood 104 mmol/L (98-108); Creatinine, Blood 0.97 mg/dL (0.60-1.20); Globulin, Blood 4.6 g/dL (2.2-4.0); Glomerular Filtration Rate >60 (60-); Glucose, Blood 146 mg/dL (70-99); Potassium, Blood 5.5 mmol/L (3.5-5.5); Sodium, Blood 136 mmol/L (136-145); Total Protein, Blood 7.4 g/dL (6.4-8.2)
[2019-08-31] MEDS ORDERED: Cymbalta30 MG PO (12:34)
[2019-08-31 16:10] LABS: PO2 Arterial 122 mmHg (80-100); pH Blood Arterial 7.34 (7.35-7.45)
[2019-08-31 16:18] LABS: Source, Urine Catheter
[2019-08-31 16:20] LABS: Bilirubin, Urine Neg (Neg); Blood, Urine 4+ (Neg); Glucose Qualitative, Urine Neg (Neg); Ketones, Urine 2+ (Neg); Leukocyte Esterase, Urine 3+ (Neg); Nitrite, Urine Neg (Neg); Protein, Urine 2+ (Neg); Urobilinogen, Urine NORM (Normal)
[2019-08-31 16:34] LABS: Appearance, Urine Hazy (Clear); Color, Urine Yellow (P-Yellow)
[2019-08-31 16:35] LABS: Red Blood Cells, Urine 25-50 /hpf (0-2); White Blood Cells, Urine 50-100 /hpf (0-5)
[2019-08-31 16:36] LABS: Amorphous Light (0-Heavy); Bacteria Mod /hpf; Squamous Epithelial Cells Not Seen /hpf (Few)
--- NOTE | 2019-08-31 19:39 | NUR ---
PT ADMITTED TO ICU AT 1350 FROM ER FOR SEPSIS. PT ARRIVED AWAKE, ALERT, AND IN NO DISTRESS. PT HYPOTENSIVE WITH MAPS 55+. ON ARRIVAL 500CC BOLUS INFUSING. TOTAL OF 2.5L GIVEN. DR MARSHALL CONSULTED AND GIVEN UPDATE IN UNIT CLOSE TO ADMIT. SATS 100% ON 3L VIA N/C. PT IN NO RESP DISTRESS, RESP EVEN AND UNLABORED. PT DENIED SOB. FINE CRACKLES TO LLL. DIMINISHED T/O. PT'S SKIN PALE, MOTTLED, WITH CYANOTIC FINGER TIPS. LEFT LEG WITH SEVERE PALOR AND COLD COMPARED TO RL. ABSENT PULSES TO LEFT LEG. UNABLE TO OBTAIN POP PULSE VIA DOPPLER TO LEFT LEG. FEM PULSE PRESENT TO LEFT SIDE; WEAK DOPPLER. NECROTIC TISSUE SCATTERED TO FEET BILAT. CYANOTIC AREAS SCATTERED WELL. FOUL SMELLING, PRESSURE ULCER TO LEFT HEEL. WOUND CX SENT. RIGHT HEEL WITH PRESSURE ULCER WELL. BOTH DRSG'S REMOVED. WOUNDS LEFT OPEN TO AIR. HEELS FLOATED ON PILLOWS. FENT 12.5MCG GIVEN FOR PAIN 3-5/10 TO LEFT LEG. PT STATES LEFT FOOT COMPLETELY NUMB. DENIES NUMBNESS TO RIGHT FOOT. DR CASTRO CONSULTED AND CALLED IMMEDIATELY. DR CASTRO IN TO SEE PT AT 1500. NO PULSE TO LEFT LEG AT TIME OF HIS EVALUATION. HEPARIN GTT STARTED AT 15UNITS/KG/HR. PT WITH POOR ACCESS. PICC PLACED TO GEO W/O DIFFICULTY. PT UNABLE TO VOID, CATHETER PLACED. ONE UNIT OF BLOOD STARTED. PT TOLERATED BLOOD W/O ANY ADVERSE REACTIONS. LEVOPHED ORDERED BUT NOT STARTED, PT'S BP RESPONDED TO FLUIDS AND BLOOD. LEFT LEG STARTED TO PINK UP AT 1700. PT REGAINED SOME FEELING. ABLE TO OBTAIN DOPPLER PULSE TO LEFT DP. DR CASTRO NOTIFIED. PT TO LODGE ATTENDANT AT 1830. PT HAS NO FAMILY PER PATIENT. DIRECTOR OF MUSIC UYEN IS "FAMILY" AND CAN MAKE DECISIONS ON HIS BEHALF PER PT. PT DNR. REPORT GIVEN TO ABEL DIAZ AT 1930.
--- NOTE | 2019-08-31 22:19 | NUR ---
PT RETURNS FROM CATH CENTER SECONDARY TO HAVING PERIPHERAL STENT PLACED TO LEFT LOWER EXTREMITY. REPORT RECEIVED FROM COMPUTERIZED MACHINE FABRIC CUTTER TEAM AT BEDSIDE. PT PRESENTS TO ROOM ICU 8 AT 2200. NOTED HAS FEMSTOP IN PLACE OVER RIGHT GROIN ACCES SITE SECONDARY TO REPORTED HEMATOMA IN COMPUTERIZED MACHINE FABRIC CUTTER. HAVE NOTED HEMATOMA MEDIAL ASPECT OF FEMSTOP. PT PLEASANTLY DISORIENTED AT THIS TIME. NEEDS REMINDERS TO KEEP HEAD DOWN. REORIENTED PT. WILL REVIEW CHART AND PLAN OF CARE FOR THIS PT
--- NOTE | 2019-08-31 22:46 | NUR ---
DR CASTRO COMES BY TO SEE PT. IS MADE AWARE OF GROIN SITE WITH FEMSTOP WITH MILD PRESSURE. GOOD PEDAL PULSES RIGHT FOOT. DOPPLER PULSES LEFT FOOT AND ALSO CAN BE PALPATED THOUGH IS VERY WEAK. NO NEW ORDERS RECEIVED. PT HAS BEEN PLACED BACK TO HEPARIN PER DR CASTRO WITH PHARMACY CONSULT. SPOKE WITH PHARMACIST.
--- NOTE | 2019-09-01 02:32 | NUR ---
HAVE REMOVED FEMSTOP FROM RIGHT GROIN EARLIER, AND HEMATOMA WAS ASSESSED. HAVE REDUCED THIS BY APPROX 50 PERCENT. PT STATES THAT THIS AREA IS VERY TENDER. PT REMAINS WITH PERIPHERAL PULSES. CAP REFIL TO LEFT FOOT REMAINS BETWEEN 3-4 SECONDS. APPROX 2 SECONDS TO 3 ON RIGHT. PT REMAINS MILDLY DISORIENTED. RESPONDS WELL TO 12.5 MCG FENTANYL FOR EXTREMITY AND GROIN PAIN. WILL CONTINUE TO MONITOR
--- NOTE | 2019-09-01 02:36 | NUR ---
HAVE INCREASED LEVOPHED DRIP TO 7 MCG'S
[2019-09-01 04:59] LABS: BASOPHILS ABSOLUTE AUTO 0.05 K/mm3 (0.00-0.23); BASOPHILS PERCENT AUTO 0 % (0-2); EOSINOPHILS PERCENT AUTO 0 % (0-6); Hematocrit 18.2 % (37.0-53.0); IMMATURE GRAN ABSOLUTE AUTO 0.97 K/mm3 (0.00-0.10); IMMATURE GRAN PERCENT AUTO 4 % (0-1); LYMPHOCYTES PERCENT AUTO 6 % (21-46); MONOCYTES ABSOLUTE AUTO 2.79 K/mm3 (0.16-1.47); MONOCYTES PERCENT AUTO 11 % (4-13); Mean Corpuscular HGB 29.9 pg (26.0-34.0); Mean Corpuscular HGB Conc 30.2 g/dL (31.5-36.5); Mean Platelet Volume 9.6 fL (9.1-12.4); NEUTROPHILS ABSOLUTE AUTO 19.66 K/mm3 (1.96-9.15); NEUTROPHILS PERCENT AUTO 79 % (41-73); NRBC ABSOLUTE 0.16 K/mm3 (0.00-0.02); NRBC Auto 0.6 /100 WBC (0.0-0.2); Platelet Count 375 K/mm3 (150-400); RDW Coefficient Variation 17.2 % (11.7-14.2); RDW Standard Deviation 62.3 fL (35.1-46.3); Red Blood Cell Count 1.84 M/mm3 (4.30-5.90); White Blood Cell Count 24.87 K/mm3 (4.00-11.30)
--- NOTE | 2019-09-01 05:00 | NUR ---
CALL MADE TO DR CASTRO SECONDARY TO PT'S GROIN SITE AGAIN WITH LARGE HEMATOMA AND HGB DROPPING TO 5.5 PRESSURE HELD FOR APPROX 20 MINUTES AND FEMSTOP PLACED BACK TO RIGHT GROIN. PT HAS BEEN VERY RESTLESS IN BED. NEEDS FREQUENT REMINDERS TO NOT MOVE ABOUT SECONDARY TO BLEED.
[2019-09-01 05:07] LABS: Mean Corpuscular Volume 99 fL (80-100)
[2019-09-01 05:08] LABS: Hemoglobin 5.5 g/dL (13.5-17.5)
[2019-09-01 05:24] LABS: Alanine Aminotransfer (ALT/SGP 15 U/L (12-78); Albumin/Globulin Ratio 0.6 (0.8-1.8); Alk Phos 58 U/L (50-136); Anion Gap 12 mmol/L (6-16); Aspartate Aminotrans (AST/SGOT 37 U/L (12-37); Bilirubin, Total 0.4 mg/dL (0.1-1.0); Blood Urea Nitrogen 15 mg/dL (8-24); Bun/Creatinine Ratio 16.9 (12.0-20.0); CO2, Blood 19 mmol/L (21-32); Calcium, Blood 7.9 mg/dL (8.5-10.1); Chloride, Blood 111 mmol/L (98-108); Creatinine, Blood 0.89 mg/dL (0.60-1.20); Globulin, Blood 3.1 g/dL (2.2-4.0); Glomerular Filtration Rate >60 (60-); Glucose, Blood 105 mg/dL (70-99); Potassium, Blood 3.9 mmol/L (3.5-5.5); Sodium, Blood 142 mmol/L (136-145)
[2019-09-01 05:26] LABS: Total Protein, Blood 5.1 g/dL (6.4-8.2)
[2019-09-01 05:34] LABS: D-Dimer, Quantitative 2.04 mg/L FEU (0.00-0.52); International Normalized Ratio 1.16; Prothrombin Time Results 12.3 Sec (9.7-11.5)
--- NOTE | 2019-09-01 06:30 | NUR ---
SPOKE TO PT'S CAREGIVER ON TELEPHONE. UPDATE GIVEN THAT PT NEEDING MORE PRBC'S THIS AM. UPDATE GIVEN ON PROCEDURE DONE WITH GOOD REVASCULARAZATION OF LEFT LOWER EXTREMITY. ALLOWED FOR QUESTIONS. WILL CONTINUE TO MONITOR PT, AND WILL REPORT OFF TO ONCOMING RN.
[2019-09-01 08:00] LABS: Hematocrit 20.4 % (37.0-53.0)
--- NOTE | 2019-09-01 08:00 | NUR ---
SURGICAL CONSULTS PLACED CALL TO DR. MASON, SURG LAPIDARY APPRENTICE. DR Fowler SPOKE WITH DR MASON, WHO STATES UNABLE TO TAKE PT TO O.R. CALLS THEN PLACED TO DR. KYLE AND DR. AMIN WHOM WERE BOTH UNAVAILABLE FOR PROCEDURE.
--- NOTE | 2019-09-01 08:00 | NUR ---
DURING BEDSIDE REPORT NOTED THAT PT'S GROIN SITE AGAIN WAS PRESENT WITH HEMATOMA. PT BEGINS WITH AGANOL BREATHING. BECOMES UNRESPONSIVE. PT RESPONDS MINIMINALLY TO STERNAL RUB. DIRECT PRESSURE HELD TO GROIN SITE. LEVOPHED INCREASED TO 20 MCG'S AND THEN INCREASED TO 30 MCG'S. BOLUS BEGUN OF LACTATED RINGERS. DR CASTRO COMES TO ROOM. ORDERS RECEIVED. REPORT WAS GIVEN TO EMILY DESIR. 53 MINUTES OF MANUAL HOLD TO RIGHT GROIN DONE.
[2019-09-01 08:15] LABS: International Normalized Ratio 1.14; Prothrombin Time Results 12.1 Sec (9.7-11.5)
[2019-09-01 09:58] LABS: Hemoglobin 6.9 g/dL (13.5-17.5)
--- NOTE | 2019-09-01 10:00 | NUR ---
Rhea of Care: Care assumed at 0700hr. At shift change, patient drowsy, but responding to verbal simuli, oriented to self/place and following commands. During assessment of rt groin, large hematoma noted to rt inner thigh (new development per NOC RN). Direct pressure then applied by NOC RN. Patient also became unresponsive with agonal breathing, unable to rouse patient. BP decreased to systolic in the 40's, and at times unable to obtain BP. Call placed to Dr. Ford when hematoma noted, received instructions he would come see the patient SCOTT, and to given 2units of FFP. 1st of 2 units of PRBC's infusing at shift change. Before Dr. Tucker arrival. Levophed gtt increased from 10 to 20mcg/min, the 30mcg/min, LR bolus started, and PRBC infusion increased to bolus rate. Dr. Ford then to room at approx 0730hr. Received order for Narcan (patient received oxycodone late NOC shift), and for Protamine Sulfate, as previous PTT was critically high. Total of 10mg Protamine Sulfate given. X2 units PRBC's and 2 units FFP infused per pressure bag per Dr. Ford. Patient then placed on BiPAP to support breathing, code status of DNR (no intubation or CPR) confirmed by Dr. Ford with patient's POA. At approx 0800hr, patient began to rouse and answer questions. BP improved in 150's-180's, levophed gtt decreased to 20mcg/min, then 15mcg/min. Manual pressure held for total of 55min, then fem-stop applied per Dr. Ford. Also received instruction to leave fem-stop in place throughout shift. Rt groin now stable, hematoma not increasing in size, no signs of active bleeding. Repeat hemoglobin level of 6.9, increased from 6.0, receive order per Dr. Pederson for x1 unit of PRBC's, now. Levophed gtt now decreased to 8mcg/min. Dr. Ford back to room at this time, again received instructions to leave fem stop in place, no pulses found to rt foot, but capillary re-fill slightly delayed, Dr. Ford aware. Patient sleeping, but easily roused to verbal stimuli, remains oriented x4. Will continue to monitor.
[2019-09-01 15:21] LABS: Vancomycin, Trough 16.4 ug/mL (5.0-10.0)
[2019-09-01 16:17] LABS: Hematocrit 23.3 % (37.0-53.0); Hemoglobin 7.8 g/dL (13.5-17.5)
[2019-09-01 16:21] LABS: Anion Gap 10 mmol/L (6-16); Blood Urea Nitrogen 16 mg/dL (8-24); Bun/Creatinine Ratio 14.2 (12.0-20.0); CO2, Blood 20 mmol/L (21-32); Calcium, Blood 7.6 mg/dL (8.5-10.1); Chloride, Blood 111 mmol/L (98-108); Creatinine, Blood 1.13 mg/dL (0.60-1.20); Glomerular Filtration Rate >60 (60-); Glucose, Blood 201 mg/dL (70-99); Magnesium, Blood 1.4 mg/dL (1.6-2.4); Phosphorus, Blood 4.2 mg/dL (2.5-4.9); Potassium, Blood 4.1 mmol/L (3.5-5.5); Sodium, Blood 141 mmol/L (136-145)
--- NOTE | 2019-09-01 18:33 | NUR ---
Shift Summary: Rt groin access site remained stable throughout remainder of shift. Hematoma did not increase in size, no bleeding from puncture site, VS remain stable. Levophed titrated down and off by approx 1230hr. Repeat hemoglobin of 7.8 this afternoon, called to Dr. Pederson, no additional blood products ordered at that time. Received order for 2g magnesium sulfate r/t magnesium levels of 1.4. 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 Ford. US tech to room this evening to compress aneurysm (approx 45-60min). Then received orders per Dr. Ford to leave Fem-stop in place throughout the night and repeat US of femoral artery tomorrow. Rt foot remains cool, dusky, with delayed capillary refill. Dr. Ford aware of appearance of rt foot (to room several times throughout shift), instructed assessment/appearance of rt foot is acceptable at this time, but will require interventions at a later date.
--- NOTE | 2019-09-01 19:55 | NUR ---
ASSUMED CARE OF PT AT 1915. REPORT RECEIVED AT BEDSIDE. PT PRESENTS IN BED MILDLY CONFUSED. NEEDS TO BE REMINDED WHY HE WAS HERE, AND WHY WRIST RESTRAINTS WERE BEING USED. PT REORIENTS RATHER QUICKLY. GROIN SITE CHECKED WITH OFFGOING RN. FEMSTOP REMAINS IN PLACE. 25 MM/HG PRESSURE TO MAINTAIN PRESSURE ON PSEUDOANURYSM. AREA OF ECHYMOSIS FROM HEMATOMA MARKED. SOME ECCHYMOSIS OUTSIDE OF MAPPING. LEVOPHED AT 2 MCG'S. WILL WEAN TO OFF IF ABLE. WILL REVIEW CHART AND PLAN OF CARE FOR THIS PT.
--- NOTE | 2019-09-01 20:21 | NUR ---
CORRECTION TO PREVIOUS NOTE: LEVOPHED ON STANDBY. BLOOD PRESSURES MAINTAIN WITH MAP > 60.
[2019-09-01 22:09] LABS: Hematocrit 20.7 % (37.0-53.0)
--- NOTE | 2019-09-02 00:05 | NUR ---
PT RECEIVES FULL BEDBATH AND LINEN CHANGE. PT FEARFUL OF FALLING AND NEEDS QUITE A BIT OF COACHING DURING TURNS TO KEEP LOWER EXTREMITIES STRAIGHT. NO NEW HEMATOMAS FORMED AT RIGHT GROIN. FEMSTOP REMAINS IN PLACE PER DR CASTRO. PT DOES NOT HAVE ANY INCREASE IN DISCOMFORT DURING BEDBATH. DOPPLER PULSES TO RIGHT LOWER EXTREMITY VERY FAINT AND DIFFICULT TO FIND. DR CASTRO IS AWARE. DOES HAVE SLOW CAP REFILL AT APPROX 4 SECONDS TO RIGHT FOOT. LEFT PEDAL PULSES EASILY OBTAINED BY DOPPLER AND CAN BE PALPATED THOUGH FAINT. REORIENTED PT TO PLACE TIME AND EVENT. PT DOES QUESTION IF "I SHOULD DRINK THAT BEER THAT IS ON THE COUNTER?" EXPLAINED TO PT THAT HE WAS IN THE HOSPITAL AND THAT THERE WAS NOT ANY BEER IN THE ROOM. WILL CONTINUE TO MONITOR PT. HAS MAINTAINED ADEQUATE BLOOD PRESSURES WITHOUT SUPPORT OF LEVOPHED. CONTINUES WITH MAP > 60.
[2019-09-02 04:05] LABS: BASOPHILS ABSOLUTE AUTO 0.05 K/mm3 (0.00-0.23); BASOPHILS PERCENT AUTO 0 % (0-2); EOSINOPHILS PERCENT AUTO 0 % (0-6); Hematocrit 19.2 % (37.0-53.0); Hemoglobin 6.4 g/dL (13.5-17.5); IMMATURE GRAN ABSOLUTE AUTO 1.08 K/mm3 (0.00-0.10); IMMATURE GRAN PERCENT AUTO 4 % (0-1); LYMPHOCYTES ABSOLUTE AUTO 1.11 K/mm3 (0.84-5.20); LYMPHOCYTES PERCENT AUTO 4 % (21-46); MONOCYTES ABSOLUTE AUTO 2.54 K/mm3 (0.16-1.47); MONOCYTES PERCENT AUTO 10 % (4-13); Mean Corpuscular HGB 29.5 pg (26.0-34.0); Mean Corpuscular HGB Conc 33.3 g/dL (31.5-36.5); Mean Platelet Volume 9.6 fL (9.1-12.4); NEUTROPHILS ABSOLUTE AUTO 21.97 K/mm3 (1.96-9.15); NEUTROPHILS PERCENT AUTO 82 % (41-73); NRBC ABSOLUTE 0.58 K/mm3 (0.00-0.02); NRBC Auto 2.2 /100 WBC (0.0-0.2); Platelet Count 258 K/mm3 (150-400); RDW Coefficient Variation 18.4 % (11.7-14.2); RDW Standard Deviation 57.5 fL (35.1-46.3); Red Blood Cell Count 2.17 M/mm3 (4.30-5.90); White Blood Cell Count 26.75 K/mm3 (4.00-11.30)
[2019-09-02 04:06] LABS: Mean Corpuscular Volume 89 fL (80-100)
[2019-09-02 04:24] LABS: Albumin, Blood 1.8 g/dL (3.4-5.0); Albumin/Globulin Ratio 0.7 (0.8-1.8); Bilirubin, Total 0.7 mg/dL (0.1-1.0); Bun/Creatinine Ratio 11.3 (12.0-20.0); Calcium, Blood 7.6 mg/dL (8.5-10.1); Creatinine, Blood 1.24 mg/dL (0.60-1.20); Globulin, Blood 2.7 g/dL (2.2-4.0); Magnesium, Blood 1.8 mg/dL (1.6-2.4); Phosphorus, Blood 2.6 mg/dL (2.5-4.9); Potassium, Blood 3.6 mmol/L (3.5-5.5); Total Protein, Blood 4.5 g/dL (6.4-8.2)
--- NOTE | 2019-09-02 05:17 | NUR ---
CALL MADE TO DR CASTRO THIS AM CONCERNING HGB AT 6.4 ORDER RECEIVED FOR 1 UNIT PRBC'S TO BE GIVEN. WILL DO RECHECK OF H/H ONE HOUR AFTER TRANSFUSION COMPLETES. PT HAS NO S/S ADDITIONAL HEMATOMAS OR BLEEDING. RIGHT GROIN REMAINS WITH FEMSTOP AT 25 MM/HG WITHOUT INFLATION. PT TOLERATING THIS WELL. REMAINS WITH SOFT WRIST RESTRAINTS. WHEN RELEASED FOR ROM, PT REACHES FOR FEMSTOP AND NEEDS TO BE INSTRUCTED NOT TO DO SO. WILL CONTINUE TO MONITOR PT, AND WILL REPORT OFF TO ONCOMING RN.
--- NOTE | 2019-09-02 08:42 | NUR ---
ULTRASOUND OF THE R FEMORAL SURGICAL SITE: [place] FROM ULTRASOUND STATES HE SPOKE WITH DR CASTRO, VESSLE IS NOTED TO BE OCCLUDED AND DR CASTRO GAVE ORDERS TO REMOVE THE FEMSTOP.
--- NOTE | 2019-09-02 09:23 | NUR ---
DR CASTRO: CAME IN TO SEE PT. FEMSTOP HAD JUST BEEN REMOVED. GROIN SITE APPEARS STABLE AT THIS TIME. PT IS STILL LYING FLAT FOR NOW. DR CASTRO STATES HE IS FINE WITH HOSPITALIST CHANGING HIS STATUS TO MEDICAL AND PT GOING HOME TOMORROW. DR CASTRO DOES NOT WANT HIM TO GO HOME ON ANY ANTICOAGULATION AND WILL SEE HIM IN HIS OFFICE ON FRIDAY TO SEE ABOUT RESTARTING ANTICOAGULATION.
--- NOTE | 2019-09-02 09:25 | NUR ---
DR MARSHALL: CAME AND ASSESSED PT, STATES HE IS OK WITH PT HAVING BEER TO REDUCE RISK FOR PT GOING THROUGH FULL BLOWN DT'S. WAS AVAILABLE TO DISCUSS WITH DR CASTRO ABOUT ANTICOAGULATION D/T PT IN A-FIB, SEE PREVIOUS NOTE.
[2019-09-02 12:55] LABS: Hematocrit 23.6 % (37.0-53.0); Hemoglobin 7.9 g/dL (13.5-17.5)
--- NOTE | 2019-09-02 15:00 | NUR ---
DARIA: ANDREINA THE POA FOR PT IN TO VISIT AND DISCUSS PLAN OF CARE FOR THE PT. RECEIVED INFORMATION OF PT LIVING IN THE MOTOR [place] FROM THE CAREGIVER. DISCUSSED WITH POA PT CURRENT STATUS AND CURRENT ASSISTANCE AT HOME. 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 STATED PT HAS A BSC AT HIS BEDSIDE, BUT HAS DIFFICULTY GETTING FROM BED TO BSC INDEPENDENTLY. CAREGIVER HAS CAME IN TO FIND PT ON THE FLOOR BY BSC AFTER ATTEMPTING TO TRANSFER. DARIA IS CONCERNED FOR PT TO RETURN TO HIS [facility] AND LIVE INDEPENDENTLY AGAIN, BUT PT IS NOT WILLING TO RETURN TO [facility]. MEAT AND [employer] MANAGER NOTIFIED OF POA AT BEDSIDE AND HAD HER COME TALK WITH POA AND PT TO DISCUSS DISCHARGE PLAN D/T DISCUSSION OF PT LEAVING TOMORROW.
[2019-09-02 15:53] LABS: Vancomycin, Trough 25.5 ug/mL (5.0-10.0)
--- NOTE | 2019-09-02 20:00 | NUR ---
ASSUMED CARE OF PT AT 1915. REPORT RECEIVED AT BEDSIDE. PT PRESENTS IN BED. FORGETFUL AND SOMEWHAT DISORIENTED. PT IN NO APPARENT DISTRESS AT THIS TIME. IS PLEASANT AND COOPERATIVE WITH CARE AND ASSESSMENT. RIGHT GROIN SITE CHECKED. NO HEMATOMA NOTED. DOES HAVE ECCHYMOSIS THAT IS AT RIGHT GROIN AND CROSSES TO RIGHT SIDE. ECCHYMOSIS ALSO EXTENDS DOWN TO INNER RIGHT THIGH AND IS DIFFUSE EXTENDING BEYOND MAPPING. DR CASTRO AWARE OF HGB 7.2 VERBAL ORDER RECEIVED TO TRANSFUSE UNIT OF PRBC'S IF NEXT HGB WAS BELOW 7.0. WILL REVIEW CHART AND PLAN OF CARE FOR THIS PT.
--- NOTE | 2019-09-03 01:56 | NUR ---
PT HAS INCREASED IN CONFUSION AND ANXIOUSNESS. HAVING AUDITORY AND VISUAL HALLUCINATIONS. HAVE MEDICATED PT WITH LIBRIUM WITHOUT ANY NOTICEABLE CHANGES. PT WAS FOUND TO HAVE BEEN PULLING ON HIS PUENTE CATHETER CAUSING SMALL AMOUNT OF BLEEDING. PT PLACED IN SOFT WRIST RESTRAINTS FOR HIS SAFETY. CALL PLACE TO HOSPITALIST, DR PALUMBO. ORDERS RECEIVED.
[2019-09-03 04:20] LABS: BASOPHILS ABSOLUTE AUTO 0.04 K/mm3 (0.00-0.23); BASOPHILS PERCENT AUTO 0 % (0-2); EOSINOPHILS PERCENT AUTO 0 % (0-6); Hematocrit 21.6 % (37.0-53.0); IMMATURE GRAN ABSOLUTE AUTO 0.95 K/mm3 (0.00-0.10); IMMATURE GRAN PERCENT AUTO 4 % (0-1); LYMPHOCYTES ABSOLUTE AUTO 0.63 K/mm3 (0.84-5.20); LYMPHOCYTES PERCENT AUTO 3 % (21-46); MONOCYTES ABSOLUTE AUTO 2.02 K/mm3 (0.16-1.47); MONOCYTES PERCENT AUTO 9 % (4-13); Mean Corpuscular HGB 28.7 pg (26.0-34.0); Mean Corpuscular HGB Conc 32.4 g/dL (31.5-36.5); Mean Corpuscular Volume 89 fL (80-100); Mean Platelet Volume 9.3 fL (9.1-12.4); NEUTROPHILS ABSOLUTE AUTO 18.89 K/mm3 (1.96-9.15); NEUTROPHILS PERCENT AUTO 84 % (41-73); NRBC ABSOLUTE 0.32 K/mm3 (0.00-0.02); NRBC Auto 1.4 /100 WBC (0.0-0.2); Platelet Count 239 K/mm3 (150-400); RDW Coefficient Variation 18.8 % (11.7-14.2); RDW Standard Deviation 58.7 fL (35.1-46.3); Red Blood Cell Count 2.44 M/mm3 (4.30-5.90); White Blood Cell Count 22.53 K/mm3 (4.00-11.30)
[2019-09-03 04:43] LABS: Albumin, Blood 1.8 g/dL (3.4-5.0); Anion Gap 7 mmol/L (6-16); Blood Urea Nitrogen 11 mg/dL (8-24); Bun/Creatinine Ratio 9.3 (12.0-20.0); CO2, Blood 24 mmol/L (21-32); Chloride, Blood 111 mmol/L (98-108); Creatinine, Blood 1.18 mg/dL (0.60-1.20); Glomerular Filtration Rate >60 (60-); Glucose, Blood 111 mg/dL (70-99); Phosphorus, Blood 2.3 mg/dL (2.5-4.9); Potassium, Blood 3.4 mmol/L (3.5-5.5); Sodium, Blood 142 mmol/L (136-145); Vancomycin, Random 21.1 ug/mL
--- NOTE | 2019-09-03 05:19 | NUR ---
PT IN PROCESS OF TRANSFUSION OF 1 UNIT PRBC'S. PT'S HGB THIS AM 7.0 NO ACTIVE BLEEDING NOTED. NO NEW HEMATOMAS. CONTINUES WITH ECCHYMOSIS SECONDARY TO PREVIOUS REBLEED OF ANGIO SITE. PT DEMONSTRATING INCREASING S/S ETOH WITHDRAWALS. HAVE MEDICATE PT TWICE WITH 2 MG ATIVAN WHICH HAS DECREASED CIWA. NO S/S TRANSFUSION REACTION TO BLOOD PRODUCTS TO NOTE. WILL CONTINUE TO MONITOR PT, AND WILL REPORT OFF TO ONCOMING RN.
--- NOTE | 2019-09-03 12:20 | NUR ---
TRANSFER OF CARE REPORT GIVEN TO Caity LUQUE RN IN PCU. PT HAD H/H DRAWN AND NOON MEDS GIVEN PRIOR TO TRANSFER. BELONGINGS GATHERED AND TRANSFERRED WITH PT. PT TRANSPORTED TO PCU 4 VIA BED BY JACOB HENSLEY.
[2019-09-03 12:31] LABS: Hematocrit 25.6 % (37.0-53.0); Hemoglobin 8.3 g/dL (13.5-17.5)
--- NOTE | 2019-09-03 13:35 | NUR ---
MOVED TO PCU ROOM 4 FROM ICU AT 1230. REPORT FROM ARLENE DIAZ. ARROUSES TO VERBAL AND PHYSICAL STIMULI. RIGHT FOOT DISCOLORED BLUISH, WARM TO TOUCH, BRUISING ACROSS GROIN FROM PREVIOUS PROCEDURE, REVASC SITE DRY AND DRESSING INTACT. MULTIPLE EXCORIATIONS, AND BRUISING THROUGHOUT BODY. PICC IN PLACE IN RIGHT UPPER ARM, LR INFUSING AT 75ML/HR. CONTINUE TO MONITOR ETOH WITHDRAWL WITH CIWA, LEFT LOWER LEG WARM WITH FAINT PEDAL PULSE, FOAM BOOTY IN PLACE FOR HEEL WOUND ON RIGHT. BILATERAL WRIST RESTRAINTS IN PLACE FOR AGITATION AND PULLING AT LINES, WILL CONTINUE TO MONITOR.
[2019-09-03 18:26] LABS: Hematocrit 24.3 % (37.0-53.0)
[2019-09-04 00:01] LABS: Hematocrit 26.2 % (37.0-53.0); Hemoglobin 8.9 g/dL (13.5-17.5)
[2019-09-04 04:27] LABS: BASOPHILS ABSOLUTE AUTO 0.03 K/mm3 (0.00-0.23); BASOPHILS PERCENT AUTO 0 % (0-2); EOSINOPHILS PERCENT AUTO 0 % (0-6); Hematocrit 24.8 % (37.0-53.0); Hemoglobin 8.2 g/dL (13.5-17.5); IMMATURE GRAN ABSOLUTE AUTO 0.39 K/mm3 (0.00-0.10); IMMATURE GRAN PERCENT AUTO 2 % (0-1); LYMPHOCYTES ABSOLUTE AUTO 0.56 K/mm3 (0.84-5.20); LYMPHOCYTES PERCENT AUTO 3 % (21-46); MONOCYTES ABSOLUTE AUTO 2.42 K/mm3 (0.16-1.47); MONOCYTES PERCENT AUTO 11 % (4-13); Mean Corpuscular HGB 29.7 pg (26.0-34.0); Mean Corpuscular HGB Conc 33.1 g/dL (31.5-36.5); Mean Corpuscular Volume 90 fL (80-100); Mean Platelet Volume 9.4 fL (9.1-12.4); NEUTROPHILS ABSOLUTE AUTO 19.08 K/mm3 (1.96-9.15); NEUTROPHILS PERCENT AUTO 85 % (41-73); NRBC ABSOLUTE 0.08 K/mm3 (0.00-0.02); NRBC Auto 0.4 /100 WBC (0.0-0.2); Platelet Count 207 K/mm3 (150-400); RDW Coefficient Variation 18.4 % (11.7-14.2); RDW Standard Deviation 57.2 fL (35.1-46.3); Red Blood Cell Count 2.76 M/mm3 (4.30-5.90); White Blood Cell Count 22.48 K/mm3 (4.00-11.30)
[2019-09-04 04:53] LABS: Albumin, Blood 1.7 g/dL (3.4-5.0); Anion Gap 9 mmol/L (6-16); Blood Urea Nitrogen 12 mg/dL (8-24); Bun/Creatinine Ratio 11.5 (12.0-20.0); CO2, Blood 25 mmol/L (21-32); Calcium, Blood 7.7 mg/dL (8.5-10.1); Chloride, Blood 111 mmol/L (98-108); Creatinine, Blood 1.04 mg/dL (0.60-1.20); Glomerular Filtration Rate >60 (60-); Glucose, Blood 123 mg/dL (70-99); Magnesium, Blood 1.5 mg/dL (1.6-2.4); Phosphorus, Blood 3.3 mg/dL (2.5-4.9); Potassium, Blood 3.5 mmol/L (3.5-5.5); Sodium, Blood 145 mmol/L (136-145)
--- NOTE | 2019-09-04 06:23 | NUR ---
SHIFT SUMMARY PT A&O TO SELF. SPEECH IS MUMBLED & DIFFICULT TO UNDERSTAND. PT MUMBLING TO SELF IN RM. PT AGITATED AROUND 0030, RESTLESS IN BED, NC BECAME DISPLACED. STAFF ATTEMPTING TO REAPPLY NC BUT PT REFUSING NC, TRYING TO SWING RESTRAINED ARMS AT STAFF. SPO2 DECREASE TO 80's ON RA. NC REAPPLIED W/ SPO2 RETURN TO > 92%. PRN IV ATIVAN GIVEN PER EMAR X1 THIS SHIFT. PT WEARING 5-7L HI-JOYCELYN NC THIS SHIFT. MONITOR SHOWING AFIB, HR 80's-120's THIS SHIFT. BP LOW & HIGH THIS SHIFT, SEE VS. BILAT SWR IN PLACE T/O SHIFT W/ REMOVAL FOR REPOSITIONING, ROM, & SKIN CHECKS. BRUISING NOTED TO LOWER ABD, GROIN, PENIS, & THIGH. BED ALARM ON. WILL CONTINUE TO MONITOR & PROVIDE CARE UNTIL REPORT OFF TO DAY SHIFT RN.
--- NOTE | 2019-09-04 08:30 | NUR ---
ASSUMED CARE AT 0700, REPORT FROM EMILY DOWNS. RESTING IN LOW FOWLERS SUPINE IN BED. BILATERAL SOFT WRIST RESTRAINTS IN PLACE, OPENS EYES TO VERBAL STIMULI, ORIENTED TO SELF AT THIS TIME. PUENTE CATH IN PLACE DRAINING CLEAR YELLOW URINE, GROIN DRESSING CLEAN DRY AND INTACT, BRUISING THROUGHT GROIN AREA, EDEMA NOTED TO RIGHT HAND AND RIGHT FOOT. RIGHT LEG WARM WITH CAP REFILL <3, LOWER RIGHT LEG AND TOES BLUE IN COLOR WITH MOTTLING. LEFT FOOT DRESSING IN PLACE FOR REVASC TO TOP OF FOOT. PEDAL PULSE PALPABLE ON LEFT, FAINT THREADY PULSE ON RIGHT. WILL CONTINUE Q2 TURNS AND CONTINUED CIWA FOR ETOH WITHDRAWL.
--- NOTE | 2019-09-04 08:55 | NUR ---
RIGHT PEDAL PULSE OBTAINED BY DOPPLER TO VERIFY PALPABLE FAINT PULSE. PEDAL PULSE MARKED. CAP REFILL <3 TO FOOT AND 2-5TH TOE. GREAT TOE NO OBSERVABLE CAP REFILL. PROVIDER IN ROOM TO ASSESS.
--- NOTE | 2019-09-04 11:38 | NUR ---
ROLLED WITH MATERIAL CONTROL CLERK TO ASSESS SKIN ON POSTERIOR SURFACE. BRUISING FROM ANTERIOR GROIN SURFACE EXTENDS TO INNER AND POSTERIOR THIGHS. SLIGHT REDNESS TO COCCYX, NO BLANCHING OR SKIN BREAKDOWN, WILL CONTINUE Q2HR TURNS.
--- NOTE | 2019-09-04 16:23 | NUR ---
HEEL MEPILEX APPLIED TO LEFT HEEL, PRESSURE ULCER ON LEFT HEEL WEEPING FLUID.
--- NOTE | 2019-09-04 17:54 | NUR ---
SHIFT SUMMARY; REMAINED LETHARGIC DURING SHIFT. CIWA'S MAINTAINED AND MEDICATED NEEDED. NO PO FOOD INTAKE TODAY, DECLINED FOOD TRAYS. WAKES TO VERBAL STIMULI, ANSWERS SIMPLE QUESTIONS. Q2 REPOSITIONING MAINTAINED. GROIN BILATERALLY ECCYMOTIC, DRESSING TO RIGHT GROIN SITE CLEAN, DRY AND INTACT. RIGHT LOWER LEG MOTTLED WITH FOOT AND TOES BLUE IN COLOR. NO CAP REFILL TO RIGHT GREAT TOE, CAP REFILL TO FOOT AND TOES 2-5 <3. PULSE OBTAINED AND MARKED BY DOPPLER. LEG AND FOOT WARM TO TOUCH. LEFT LOWER LEG AND FOOT WARM AND COLOR WNL, PEDAL PULSE PALPABLE, CAP REFILL <3. PUENTE CATH IN PLACE DRAINING DARK YELLOW URINE. O2 VIA NC AT 2L TO MAINTAIN SATS OF 92%. LR INFUSING AT 100ML/HR TO PICC IN UPPER RIGHT ARM. SOFT RESTRAINTS IN PLACE DUE TO PULLING AT LINES AND NON REDIRECTABLE, WILL CONTINUE TO MONITOR UNTIL CHANGE OF SHIFT.
--- NOTE | 2019-09-05 06:12 | NUR ---
patient initially admitted for sepsis as well as other vascular complications. No acute events overnight, patient remains confused but arousable and following commands. Vital signs stable no concerns at this time.
[2019-09-05 09:07] LABS: BASOPHILS ABSOLUTE AUTO 0.02 K/mm3 (0.00-0.23); BASOPHILS PERCENT AUTO 0 % (0-2); EOSINOPHILS ABSOLUTE AUTO 0.03 K/mm3 (0.00-0.68); EOSINOPHILS PERCENT AUTO 0 % (0-6); Hematocrit 22.9 % (37.0-53.0); Hemoglobin 7.2 g/dL (13.5-17.5); IMMATURE GRAN ABSOLUTE AUTO 0.23 K/mm3 (0.00-0.10); IMMATURE GRAN PERCENT AUTO 1 % (0-1); LYMPHOCYTES ABSOLUTE AUTO 0.49 K/mm3 (0.84-5.20); LYMPHOCYTES PERCENT AUTO 3 % (21-46); MONOCYTES ABSOLUTE AUTO 2.32 K/mm3 (0.16-1.47); MONOCYTES PERCENT AUTO 14 % (4-13); Mean Corpuscular HGB 29.1 pg (26.0-34.0); Mean Corpuscular HGB Conc 31.4 g/dL (31.5-36.5); Mean Corpuscular Volume 93 fL (80-100); Mean Platelet Volume 9.8 fL (9.1-12.4); NEUTROPHILS ABSOLUTE AUTO 14.01 K/mm3 (1.96-9.15); NEUTROPHILS PERCENT AUTO 82 % (41-73); NRBC ABSOLUTE 0.04 K/mm3 (0.00-0.02); NRBC Auto 0.2 /100 WBC (0.0-0.2); Platelet Count 153 K/mm3 (150-400); RDW Standard Deviation 59.6 fL (35.1-46.3); Red Blood Cell Count 2.47 M/mm3 (4.30-5.90)
[2019-09-05 09:27] LABS: Albumin, Blood 1.3 g/dL (3.4-5.0); Anion Gap 13 mmol/L (6-16); Blood Urea Nitrogen 10 mg/dL (8-24); Bun/Creatinine Ratio 13.4 (12.0-20.0); CO2, Blood 22 mmol/L (21-32); Calcium, Blood 6.9 mg/dL (8.5-10.1); Chloride, Blood 113 mmol/L (98-108); Creatinine, Blood 0.75 mg/dL (0.60-1.20); Glomerular Filtration Rate >60 (60-); Glucose, Blood 95 mg/dL (70-99); Magnesium, Blood 1.4 mg/dL (1.6-2.4); Phosphorus, Blood 3.2 mg/dL (2.5-4.9); Potassium, Blood 3.1 mmol/L (3.5-5.5); Sodium, Blood 148 mmol/L (136-145); Vancomycin, Trough 14.2 ug/mL (5.0-10.0)
--- NOTE | 2019-09-05 12:21 | NUR ---
pt declining called his POA no answer he is on his way in. Nursing is calling phsyician for comfort care order to protect pt wishes.
--- NOTE | 2019-09-05 13:35 | NUR ---
SPOKE WITH DR. COTTON REGARDING IV LASIX 20MG STARTING [place] AM, VERBAL ORDER GIVEN VIA TELEPHONE TO START TODAY. ORDER PLACED FOR OT DOSE OF 20MG IV LASIX TO GIVE NOW.
--- NOTE | 2019-09-05 15:42 | NUR ---
pt placed on comfort care. Goal is home tomorrow. Advised his POA that it may not be possible but will try.
--- NOTE | 2019-09-05 18:35 | NUR ---
SHIFT SUMMARY; TRANSITIONED TO COMFORT CARE TODAY. POA MET WITH DR. LEOS AND PALLATIVE CARE. COMFORT ORDERS PLACED, STATUS CHANGED TO MEDICAL. WILL CONTINUE TO PROVIDE COMFORT AND NEEDS UNTIL CHANGE OF SHIFT.
[2019-09-06 06:36] LABS: BASOPHILS ABSOLUTE AUTO 0.03 K/mm3 (0.00-0.23); BASOPHILS PERCENT AUTO 0 % (0-2); EOSINOPHILS ABSOLUTE AUTO 0.05 K/mm3 (0.00-0.68); EOSINOPHILS PERCENT AUTO 0 % (0-6); Hemoglobin 8.6 g/dL (13.5-17.5); IMMATURE GRAN ABSOLUTE AUTO 0.25 K/mm3 (0.00-0.10); IMMATURE GRAN PERCENT AUTO 1 % (0-1); LYMPHOCYTES ABSOLUTE AUTO 0.52 K/mm3 (0.84-5.20); LYMPHOCYTES PERCENT AUTO 3 % (21-46); MONOCYTES ABSOLUTE AUTO 2.33 K/mm3 (0.16-1.47); MONOCYTES PERCENT AUTO 13 % (4-13); Mean Corpuscular HGB 29.8 pg (26.0-34.0); Mean Corpuscular HGB Conc 31.9 g/dL (31.5-36.5); Mean Corpuscular Volume 93 fL (80-100); Mean Platelet Volume 9.8 fL (9.1-12.4); NEUTROPHILS ABSOLUTE AUTO 15.05 K/mm3 (1.96-9.15); NEUTROPHILS PERCENT AUTO 82 % (41-73); NRBC ABSOLUTE 0.06 K/mm3 (0.00-0.02); NRBC Auto 0.3 /100 WBC (0.0-0.2); Platelet Count 202 K/mm3 (150-400); RDW Standard Deviation 59.1 fL (35.1-46.3); Red Blood Cell Count 2.89 M/mm3 (4.30-5.90); White Blood Cell Count 18.23 K/mm3 (4.00-11.30)
[2019-09-06 06:50] LABS: Albumin, Blood 1.6 g/dL (3.4-5.0); Anion Gap 8 mmol/L (6-16); Blood Urea Nitrogen 12 mg/dL (8-24); Bun/Creatinine Ratio 13.1 (12.0-20.0); CO2, Blood 26 mmol/L (21-32); Calcium, Blood 7.8 mg/dL (8.5-10.1); Chloride, Blood 112 mmol/L (98-108); Creatinine, Blood 0.92 mg/dL (0.60-1.20); Glomerular Filtration Rate >60 (60-); Glucose, Blood 109 mg/dL (70-99); Potassium, Blood 3.1 mmol/L (3.5-5.5); Sodium, Blood 146 mmol/L (136-145)
--- NOTE | 2019-09-06 07:15 | NUR ---
patient initially admitted for sepsis as well as other vascular complications. No acute events overnight, patient remains confused but arousable and following commands. Patient remain comfort care overnight and did not have any complications.
--- NOTE | 2019-09-06 09:54 | NUR ---
PT RESTING IN BED, DECLINES ASSISTANCE WITH BREAKFAST, REQUESTED JUICE. PICC LINE IN PLACE, SALINE LOCK. PLAN IS TO DISCHARGE HOME TODAY. DRESSINGS ARE C/D/I. PT IS TACYPENIC, OXYGEN IN PLACE. RIGHT FOOT IS COLD TO TOUCH AND TOES ARE PURPLE, NON PALPIPLE PULSE. LEFT FOOT IS COOL, DRESSING IN PLACE, UNABLE TO ASSESS PULSES. CARE MANAGEMENT IS COORDINATING PLANNED DISCHARGE TODAY.
[2019-09-06] MEDS ORDERED: ATROPINE SULFATE2 M1 BOTHEYES (10:06)
[2019-09-06] MEDS ORDERED: MORP20L PO (10:09)
[2019-09-06] MEDS ORDERED: TRANSDERM-SCOP1 EACH TD (10:10)
[2019-09-06] MEDS ORDERED: LORA.5 PO (10:11)
--- NOTE | 2019-09-06 12:20 | NUR ---
DISCHARGE INSTRUCTIONS GONE OVER WITH ORI HDZ'S POA. INSTRUCTED ON WHERE MEDICATIONS WERE FAXED TO AND HOW TO OBTAIN MEDICATIONS. BELONGINGS GATHERED AND SENT HOME WITH ANDREINA. PUENTE REMAINED IN PLACE PER REQUEST AND PROTOCOL OF COMFORT CARE MEASURES. INSTRUCTED POA ON CATHETER CARE. ALL QUESTIONS WERE ANSWERED. PT WAS DISCHARGED VIA GURNEY BY [facility].
== END 2019-09-06 12:21 | disposition hospice, home (50) | DRG 853 ==
LOC: ER 10:47 → ICUE 13:03 → ICUW 13:03 → ICUE 13:43 → PCU 09-03 12:21
PROVIDERS: Emergency Medicine; Family Medicine; Internal Medicine Critical Care Medicine; Pharmacist; Radiology Diagnostic Radiology; ADMIT Internal Medicine
PROC: 047D34Z Dilation of Left Common Iliac Artery with Drug-eluting Intraluminal Device, Percutaneous Approach (ICD-10-PCS; principal; 2019-08-31)
PROC: 02HV33Z Insertion of Infusion Device into Superior Vena Cava, Percutaneous Approach (ICD-10-PCS; 2019-08-31)
PROC: 3E043XZ Introduction of Vasopressor into Central Vein, Percutaneous Approach (ICD-10-PCS; 2019-08-31)
PROC: 5A09457 Assistance with Respiratory Ventilation, 24-96 Consecutive Hours, Continuous Positive Airway Pressure (ICD-10-PCS; 2019-09-01)
PROC: 047J341 Dilation of Left External Iliac Artery with Drug-eluting Intraluminal Device, using Drug-Coated Balloon, Percutaneous Approach (ICD-10-PCS; 2019-09-01)
PROC: 047L3Z1 Dilation of Left Femoral Artery using Drug-Coated Balloon, Percutaneous Approach (ICD-10-PCS; 2019-09-01)
PROC: 047N3ZZ Dilation of Left Popliteal Artery, Percutaneous Approach (ICD-10-PCS; 2019-09-01)
PROC: 30233N1 Transfusion of Nonautologous Red Blood Cells into Peripheral Vein, Percutaneous Approach (ICD-10-PCS; 2019-09-02)
DX: A41.9 Sepsis, unspecified organism (principal); R65.21 Severe sepsis with septic shock; J96.01 Acute respiratory failure with hypoxia; G93.41 Metabolic encephalopathy; T81.19XA Other postprocedural shock, initial encounter; N17.9 Acute kidney failure, unspecified; D62 Acute posthemorrhagic anemia; I48.20 Chronic atrial fibrillation, unspecified; F10.230 Alcohol dependence with withdrawal, uncomplicated; E87.0 Hyperosmolality and hypernatremia; E44.1 Mild protein-calorie malnutrition; I99.8 Other disorder of circulatory system; E83.42 Hypomagnesemia; E87.6 Hypokalemia; E88.09 Other disorders of plasma-protein metabolism, not elsewhere classified; D69.6 Thrombocytopenia, unspecified; Z66 Do not resuscitate; K21.9 Gastro-esophageal reflux disease without esophagitis; J44.9 Chronic obstructive pulmonary disease, unspecified; I12.9 Hypertensive chronic kidney disease with stage 1 through stage 4 chronic kidney disease, or unspecified chronic kidney disease; N18.3 Chronic kidney disease, stage 3 (moderate); I77.9 Disorder of arteries and arterioles, unspecified; T14.8XXA Other injury of unspecified body region, initial encounter; F17.210 Nicotine dependence, cigarettes, uncomplicated; I70.209 Unspecified atherosclerosis of native arteries of extremities, unspecified extremity
CPT/HCPCS: 36415; 36430; 36569; 36600; 51703; 71045; 75625; 75716; 75774; 76936; 76937; 80048; 80053; 80069; 80202; 81001; 82330; 82803; 83605; 83735; 83880; 84100; 84484; 85014; 85018; 85025; 85347; 85379; 85384; 85610; 85730; 86850; 86900; 86901; 86923; 87040; 87070; 87205; 93005; 93010; 93926; 94640; 94660; 94760; 94762; 96365; 99152; 99153; 99285-25; C1725; C1751; C1757; C1769; C1874; C1887; C1894; C2623; C9113; C9764; C9765; J0696; J1644; J1940; J2060; J2250; J2310; J2720; J3010; J3370; J3475; J3480; J7030; J7040; J7050; J7060; J7120; P9016; P9059; Q9967; U0002